=== PATIENT | male | born 1960 | race Caucasian/White ===

== ENCOUNTER 2017-02-22 15:25 | Inpatient (IN) ==
[2017-02-22 17:10] LABS: INR 1.9; Prothrombin Time 20.4 Seconds (9.4-12.1)
[2017-02-22 17:20] LABS: Calcium 9.3 mg/dL (8.6-10.8); Potassium 4.6 mEq/L (3.5-4.5)
[2017-02-22 17:32] LABS: Basophils % 0.4 %; Eosinophils # 0.1 K/mcL (0.0-0.6); Eosinophils % 0.4 %; Hematocrit 41.1 % (37.5-50.1); Hemoglobin 13.5 g/dL (12.9-16.9); Immature Granulocytes % 0.4 % (0-4); Lymphocytes # 1.3 K/mcL (0.6-4.6); Lymphocytes % 11.3 %; Mean Corpuscular HGB Conc 32.8 g/dL (31.6-35.5); Mean Corpuscular Hemoglobin 27.8 pg (28.0-33.3); Mean Corpuscular Volume 84.6 fL (83.0-100.0); Mean Platelet Volume 11.8 fL (9.4-12.4); Monocytes # 1.5 K/mcL (0.0-1.3); Monocytes % 13.3 %; Neutrophils # 8.4 K/mcL (1.6-8.9); Platelet Count 154 K/mcL (140-400); Red Blood Count 4.86 M/mcL (4.19-5.50); Red Cell Distribution Width 19.1 % (11.5-14.5); Segmented Neutrophils % 74.2 %
--- NOTE | 2017-02-22 17:48 | Podiatry History & Physical ---
History of Present Illness Chief complaint: Draining foot ulcer with cellulitis right HPI: Mr. Richter is a 56 year old male who presented to wound care clinic today with regression of his ulcer with active drainage and cellulitis of his right foot. Patient complaining of fatigue malaise chills and low-grade fever over the last 12 hours. He has a long history of Charcot arthropathy and a plantar ulceration secondary to his foot deformity. We have been treating him with moderate success with soft casting and local wound care but unfortunately we now see a tunnel and undermining with this wound with serous and serosanguineous drainage. We do see periwound erythema and localized cellulitis , with his symptoms and his history of diabetes and multiple comorbidities and failed outpatient therapy he is admitted for intravenous antibiotics and evaluation. All Systems Reviewed: A 10-system review of systems was performed and is negative for pertinent findings except as documented above in the HPI. Past Med Surg Social Fam HX - Past Medical History Source: patient Medical history: coronary artery disease, diabetes, hyperlipidemia, hypertension , renal disease, thyroid disease Psychiatric history: anxiety, depression - Past Surgical History Surgical History: coronary bypass (CABG) - Social History Smoking Status: Never smoker Smokeless Tobacco Status: No Alcohol use: none Drug use: none - Family History Mother Adopted: No Family Member Ethnicity: Non- Living Status: Still Living Hx Family Cardiac Disorders: Yes Hx Family Respiratory Disorders: Yes Hx Family Cancer: No Hx Family GI Disorders: No Hx Family Endocrine Disorder: No Hx Family Neuromuscular Disorders: No Hx Family Neurologic Disorders: No Hx Family HEENT Disorders: No Hx Family Autoimmune Disorders: No Paternal Family Member Ethnicity: Non- Living Status: Hx Family Cardiac Disorders: Yes Hx Family Respiratory Disorders: Yes Hx Family Cancer: No Hx Family GI Disorders: No Hx Family Endocrine Disorder: Yes Hx Family Neuromuscular Disorders: No Hx Family Neurologic Disorders: No Hx Family HEENT Disorders: No Hx Family Autoimmune Disorders: No Medications and Allergies Allopurinol [Zyloprim] 100 mg PO DAILY 07/29/15 [History] Colchicine [Colcrys] 0.6 mg PO DAILY 07/29/15 [History] Gemfibrozil [Lopid] 600 mg PO BID 07/29/15 [History] Insulin ASPART [NovoLOG] 22 - 52 units SQ TIDWM 07/29/15 [History] Insulin Glargine [Lantus] 60 unit SQ BID 07/29/15 [History] Levothyroxine [Synthroid] 150 mcg PO QAM 07/29/15 [History] Liraglutide [Victoza 2-Robin] 1.2 mg SQ DAILY 12/02/15 [History] Aspirin 81 mg PO DAILY 09/05/16 [History] Multivitamin [Multi-Day Vitamins] 1 each PO DAILY 09/05/16 [History] Zolpidem [Ambien] 10 mg PO HS PRN 09/05/16 [History] HYDROcodone/Acet 7.5/325 mg [[place] 7.5-325 mg] 1 tab PO BID PRN #14 tablet 09/12 [Rx] Furosemide [Lasix] 40 mg PO DAILY 12/07/16 [History] Metoprolol XL (24 HR) Succ [Toprol Xl] 50 mg PO DAILY 01/02/17 [History] Losartan [Cozaar] 25 mg PO DAILY 02/22/17 [History] [place]-3/Dha/Epa/Fish Oil [Fish Oil 1,000 mg Softgel] 2,000 mg PO BID 02/22/17 [ History] Rivaroxaban [Xarelto] 15 mg PO DAILY 02/22/17 [History] clonazePAM [Klonopin] 0.5 mg PO HS PRN 02/22/17 [History] dilTIAZem HCl [Cardizem] 60 mg PO TID 02/22/17 [History] hydrALAZINE [HydrALAZINE] 25 mg PO Q8H PRN 02/22/17 [History] hydroCHLOROthiazide [Hydrochlorothiazide] 25 mg PO DAILY 02/22/17 [History] Allergies No Known Allergies Allergy (Verified 09/05/16 18:47) Physical Exam - Constitutional Vitals: Temp Pulse Resp BP Pulse Ox 99.4 F 70 16 124/69 94 02/22/17 16:01 02/22/17 16:01 02/22/17 16:01 02/22/17 16:01 02/22/17 16:01 General appearance: obese - Extremities Exam Extremities exam: Present: normal capillary refill - Expanded Lower Extremities Exam Foot/Toe exam: Present: erythema (Charcot arthropathy Eichholz class III right midfoot) - Neurological Exam Neurological exam: Present: abnormal gait Additional comments: Patient with loss of protective sensation, 2. discrimination light touch vibration epicritic sensation the toes to tibia bilaterally. - Psychiatric Psychiatric exam: Present: normal affect - Skin Additional comments: Cabezas grade 2 ulceration plantar aspect of right midfoot with central undermining and tunneling approximately 2-3 cm in each direction. - Vascular Capillary Refill: less than 3 seconds Lower Extremity Vascular: decreased fine/light touch (Skin is warm to touch pedal pulses are diminished but palpable DP and PT bilaterally) - Ankle & Foot Foot appearance: swelling, erythema Results - Labs Result Diagrams: 02/22/17 16:46 02/22/17 16:46 Labs: Abnormal lab results WBC 11.3 K/mcL (4.3-11.1) H 02/22/17 16:46 MCH 27.8 pg (28.0-33.3) L 02/22/17 16:46 RDW 19.1 % (11.5-14.5) H 02/22/17 16:46 Monocytes # 1.5 K/mcL (0.0-1.3) H 02/22/17 16:46 ESR 97 mm/hr (0-10) H 02/22/17 16:46 PT 20.4 Seconds (9.4-12.1) H 02/22/17 16:46 Potassium 4.6 mEq/L (3.5-4.5) H 02/22/17 16:46 BUN 60 mg/dL (8-26) H 02/22/17 16:46 Creatinine 2.94 mg/dL (0.72-1.25) H 02/22/17 16:46 Est GFR ( Amer) 27 (> 60) L 02/22/17 16:46 Est GFR (Non-Af Amer) 22 (> 60) L 02/22/17 16:46 Glucose 234 mg/dL (70-99) H 02/22/17 16:46 POC Glucose 225 (58-89) H 02/22/17 16:48 Calculated Osmolality 306 (280-300) H 02/22/17 16:46 C-Reactive Protein 166 mg/L (Less than 5) H 02/22/17 16:46 H & H 02/22/17 Range/Units 16:46 Hgb 13.5 (12.9-16.9) g/dL Hct 41.1 (37.5-50.1) % All other labs normal. - Diagnostic results Ankle/Foot x-ray: pending Ankle/Foot MRI: pending Assessment and Plan (1) Diabetic foot ulcer Current visit: No Status: Acute Assessment: #1 diabetic foot ulcer with localized cellulitis undermining and tunneling. #2 concern for sepsis because of leukocytosis and low-grade fever #3 multiple comorbidities as outlined in history including diabetes with nephropathy neuropathy angiopathy. #4 morbid obesity Plan: #1 admit for intravenous antibiotics cultures taken and will care clinic prior to antibiotic therapy being instituted. History of MSSA of the right foot wound. #2 request medicine consult for management of his comorbidities #3 radiographic evaluation/imaging with history of Charcot neuroarthropathy Qualifiers: Diabetic foot ulcer location: midfoot Diabetes mellitus type: due to underlying condition Laterality: right Non-pressure ulcer stage: limited to breakdown of skin Qualified Code(s): E08.621 - Diabetes mellitus due to underlying condition with foot ulcer; L97.411 - Non-pressure chronic ulcer of right heel and midfoot limited to breakdown of skin (2) Cellulitis of right foot Current visit: No Status: Acute
[2017-02-22] MEDS ORDERED: *HR* HYDROcodone/Acet 7.5/325 mg TABLET PO PRN (20:36)
[2017-02-22] MEDS ORDERED: hydrALAZINE 25 MG TABLET PO PRN (20:36)
[2017-02-22] MEDS ORDERED: clonazePAM 0.5 MG TABLET PO PRN (20:36)
[2017-02-22] MEDS ORDERED: D5% in Water 1,000 ML IVC PRN (20:41)
[2017-02-22] MEDS ORDERED: Dextrose Gel 15 GM PO PRN ×2 (20:41)
[2017-02-22] MEDS ORDERED: *HR* Dextrose 50 % in Water (Syg) 50 ML SYRINGE IVP PRN (20:41)
--- NOTE | 2017-02-22 20:46 | Internal Medicine Consult Note ---
Date of Encounter: 02/22/17 Time of Encounter: 20:43 - Assessment and Plan (1) Diabetic foot ulcer Current Visit: No Status: Acute Assessment and plan: Treated by the primary team, right foot ulcer Currently on Zosyn, May de-escalate antibiotics and use Unasyn as in the prior cultures the patient has been growing MSSA The patient has also history of C. difficile colitis, watch for recurrence Qualifiers: Diabetic foot ulcer location: midfoot Diabetes mellitus type: due to underlying condition Laterality: right Non-pressure ulcer stage: limited to breakdown of skin Qualified Code(s): E08.621 - Diabetes mellitus due to underlying condition with foot ulcer; L97.411 - Non-pressure chronic ulcer of right heel and midfoot limited to breakdown of skin (2) Diabetes Current Visit: Yes Status: Acute Assessment and plan: The patient uses Lantus 60 units twice a day and any sudden sliding scale If there is any surgical procedure programmed his dose of insulin should be cut in half the night prior to the procedure Qualifiers: Diabetes mellitus type: type 2 Diabetes mellitus complication status: with kidney complications Diabetes mellitus complication detail: with chronic kidney disease Diabetes mellitus snf insulin use: with joint terminal attack controller use Chronic kidney disease stage: stage 4 (severe) Qualified Code(s): E11.22 - Type 2 diabetes mellitus with diabetic chronic kidney disease; N18.4 - Chronic kidney disease, stage 4 (severe); Z79.4 - intermediate manager (current) use of insulin (3) Acute renal insufficiency Current Visit: No Status: Acute Assessment and plan: Chronic kidney disease stage IV, stable (4) Atrial fibrillation Current Visit: No Status: Acute Assessment and plan: Paroxysmal atrial fibrillation Continue diltiazem, metoprolol and Xarelto Qualifiers: Atrial fibrillation type: paroxysmal Qualified Code(s): I48.0 - Paroxysmal atrial fibrillation (5) Charcot's arthropathy associated with type 2 diabetes mellitus Current Visit: No Status: Chronic (6) Essential hypertension Current Visit: No Status: Chronic Assessment and plan: Thank you for allowing us to participate in the care of this patient please call with any question Internal Medicine - CN: HPI - Data of Consult Patient: known to practice within the last 3 years Consult date: 02/22/17 Requesting Physician: Juan Davies, - Consult Narrative Reason for consult: Diabetes and chronic kidney disease History of present illness: Mr. Richter is a 56 year old male with a past medical history of chronic kidney disease stage IV, diabetes type 2 insulin-dependent, C. difficile colitis, atrial fibrillation on Xarelto who was admitted by Dr. Davies's office at the wound care clinic as he has been treating him from a right foot ulcer that has been getting worse. Has had increased drainage, not quantified fevers, chills and fatigue. White blood cell count is 11.3 creatinine 2.94 close to baseline, CRP is 166 x-ray shows Charcot's arthropathy, cellulitis versus also ulceration with no evidence of osteomyelitis. The patient was started on Zosyn. We were consulted to manage his diabetes and his chronic kidney disease. Denies any other complaints Past Med Surg Social Fam HX - Past Medical History Medical history: atrial fibrillation (on Xarelto), coronary artery disease, diabetes (Insulin-dependent), hyperlipidemia, hypertension, renal disease, thyroid disease, other (Chronic kidney disease stage IV, hypothyroidism, depression, gout, systolic dysfunction with an ejection fraction of 50%, COPD not oxygen dependent, history of C. difficile colitis, MSSA in the right foot) Psychiatric history: anxiety, depression - Past Surgical History Surgical History: coronary bypass (CABG) - Social History Smoking Status: Never smoker Smokeless Tobacco Status: No Alcohol use: none Drug use: none - Family History Mother Adopted: No Family Member Ethnicity: Non- Living Status: Still Living Hx Family Cardiac Disorders: Yes Hx Family Respiratory Disorders: Yes Hx Family Cancer: No Hx Family GI Disorders: No Hx Family Endocrine Disorder: No Hx Family Neuromuscular Disorders: No Hx Family Neurologic Disorders: No Hx Family HEENT Disorders: No Hx Family Autoimmune Disorders: No Paternal Family Member Ethnicity: Non- Living Status: Hx Family Cardiac Disorders: Yes Hx Family Respiratory Disorders: Yes Hx Family Cancer: No Hx Family GI Disorders: No Hx Family Endocrine Disorder: Yes Hx Family Neuromuscular Disorders: No Hx Family Neurologic Disorders: No Hx Family HEENT Disorders: No Hx Family Autoimmune Disorders: No - Additional Family History Additional family history: Father with diabetes Review of systems: Mild pain in his foot. Other systems out of the ten reviewed were negative Internal Medicine - CN: Meds Allopurinol [Zyloprim] 100 mg PO DAILY 07/29/15 [History] Colchicine [Colcrys] 0.6 mg PO DAILY 07/29/15 [History] Gemfibrozil [Lopid] 600 mg PO BID 07/29/15 [History] Insulin ASPART [NovoLOG] 22 - 52 units SQ TIDWM 07/29/15 [History] Insulin Glargine [Lantus] 60 unit SQ BID 07/29/15 [History] Levothyroxine [Synthroid] 150 mcg PO QAM 07/29/15 [History] Liraglutide [Victoza 2-Robin] 1.2 mg SQ DAILY 12/02/15 [History] Aspirin 81 mg PO DAILY 09/05/16 [History] Multivitamin [Multi-Day Vitamins] 1 each PO DAILY 09/05/16 [History] Zolpidem [Ambien] 10 mg PO HS PRN 09/05/16 [History] HYDROcodone/Acet 7.5/325 mg [[place] 7.5-325 mg] 1 tab PO BID PRN #14 tablet 09/12 [Rx] Furosemide [Lasix] 40 mg PO DAILY 12/07/16 [History] Metoprolol XL (24 HR) Succ [Toprol Xl] 50 mg PO DAILY 01/02/17 [History] Losartan [Cozaar] 25 mg PO DAILY 02/22/17 [History] [place]-3/Dha/Epa/Fish Oil [Fish Oil 1,000 mg Softgel] 2,000 mg PO BID 02/22/17 [ History] Rivaroxaban [Xarelto] 15 mg PO DAILY 02/22/17 [History] clonazePAM [Klonopin] 0.5 mg PO HS PRN 02/22/17 [History] dilTIAZem HCl [Cardizem] 60 mg PO TID 02/22/17 [History] hydrALAZINE [HydrALAZINE] 25 mg PO Q8H PRN 02/22/17 [History] hydroCHLOROthiazide [Hydrochlorothiazide] 25 mg PO DAILY 02/22/17 [History] Allergies No Known Allergies Allergy (Verified 09/05/16 18:47) Internal Medicine - CN: Exam - Constitutional Vitals: Temp Pulse Resp BP Pulse Ox 98.8 F 89 17 112/71 94 02/22/17 19:02 02/22/17 19:02 02/22/17 19:02 02/22/17 19:02 02/22/17 19:02 General appearance IM: Present: A&O X 3 - Head Head exam: Present: atraumatic, normal inspection - Expanded Head Exam Head exam expanded IM: Absent: Olvera's sign, contusion - Eye Eye exam: Present: EOMI, normal appearance. Absent: conjunctival injection - ENT ENT exam: Present: mucous membranes moist - Neck Neck exam general surgery: Present: full ROM, normal inspection. Absent: lymphadenopathy - Respiratory Respiratory exam: Present: decreased breath sounds. Absent: accessory muscle use, chest wall tenderness, rales, respiratory distress, wheezes - Cardiovascular Cardiovascular exam IM: Present: +S1, +S2. Absent: diastolic murmur, systolic murmur - GI/Abdominal GI/Abdominal exam IM: Present: distended (Obese), soft. Absent: tenderness - Extremities Exam Additional comments: Cabezas grade 2 ulceration plantar aspect of right midfoot with central undermining and tunneling approximately 2-3 cm in each direction. - Neurological Exam Neurological exam: Present: alert, CN II-XII intact, normal gait, oriented X3 Internal Medicine - CN: Reslt - Labs CBC & Chem 7: 02/22/17 16:46 02/22/17 16:46 Labs: Short CBC 02/22/17 Range/Units 16:46 WBC 11.3 H (4.3-11.1) K/mcL Hgb 13.5 (12.9-16.9) g/dL Hct 41.1 (37.5-50.1) % Plt Count 154 (140-400) K/mcL Neutrophils # 8.4 (1.6-8.9) K/mcL BMP 02/22/17 16:46 Sodium 136 Potassium 4.6 H Chloride 102 Carbon Dioxide 24 BUN 60 H Creatinine 2.94 H Glucose 234 H Calcium 9.3 - ABG Interpretation ABG results: PT/INR, D-dimer PT 20.4 Seconds (9.4-12.1) H 02/22/17 16:46 - Impressions Impressions Foot X-Ray 02/22/17 16:24 IMPRESSION: Grossly stable advanced Charcot arthropathy involving the midfoot. New focal soft tissue swelling with soft tissue gas along the plantar aspect of the midfoot consistent with cellulitis and ulceration. No obvious plain film evidence of osteomyelitis. D/ / 02/22/2017 17:54:34 Viktor Gary MD / curt Interpreting Provider: Viktor Gary MD Consult Discharge Plan - Plan Referrals: Amarilis Cabrera, [facility] [Primary Care Provider] -
[2017-02-22] MEDS: dilTIAZem HCl 60 MG TABLET PO SCH (22:20)
[2017-02-22] MEDS: Insulin LISPRO 300 UNITS/3 ML VIAL SQ SCH (22:21)
[2017-02-22] MEDS: Insulin DETEMIR 100 UNIT/ML X5UNITS SQ SCH (22:28)
[2017-02-23] MEDS: Insulin LISPRO 300 UNITS/3 ML VIAL SQ SCH ×7 (07:24→20:40)
[2017-02-23] MEDS: *HR* Rivaroxaban 15 MG TABLET PO SCH (08:59)
[2017-02-23] MEDS: Furosemide 40 MG TABLET PO SCH (08:59)
[2017-02-23] MEDS: dilTIAZem HCl 60 MG TABLET PO SCH ×3 (08:59→20:40)
[2017-02-23] MEDS: Metoprolol XL (24 HR) Succ 50 MG TAB.ER.24H PO SCH (09:00)
[2017-02-23] MEDS: hydroCHLOROthiazide 25 MG TABLET PO SCH (09:00)
[2017-02-23] MEDS: Aspirin 81 MG TAB.CHEW PO SCH (09:00)
[2017-02-23] MEDS: Insulin DETEMIR 100 UNIT/ML X5UNITS SQ SCH ×2 (09:00→20:41)
[2017-02-23] MEDS: Colchicine 0.6 MG TABLET PO SCH (09:00)
--- NOTE | 2017-02-23 10:43 | Internal Med Progress Note ---
<Abundio Akhtar - Last Filed: 02/23/17 14:24> Date of Encounter: 02/23/17 Time of Encounter: 09:25 - Assessment and plan (1) Diabetic foot ulcer Current Visit: No Status: Acute Assessment and plan: Treatment of right diabetic foot ulcer per primary team Currently on Zosyn and awaiting final culture and sensitivities to direct de- escalation of antibiotics. Preliminary culture shows gram-negative celso and MRI of his foot does not appear to show significant osteomyelitis. Qualifiers: Diabetic foot ulcer location: midfoot Diabetes mellitus type: due to underlying condition Laterality: right Non-pressure ulcer stage: limited to breakdown of skin Qualified Code(s): E08.621 - Diabetes mellitus due to underlying condition with foot ulcer; L97.411 - Non-pressure chronic ulcer of right heel and midfoot limited to breakdown of skin (2) Diabetes Current Visit: Yes Status: Acute Assessment and plan: Patient on 60 units Lantus twice a day with sliding scale for home control. Blood sugars have been controlled in hospital so far. We will continue basal insulin with 60 units Levemir twice a day and high-dose sliding scale If surgical procedure planned, will reduce dose of insulin by half the night prior Qualifiers: Diabetes mellitus type: type 2 Diabetes mellitus complication status: with kidney complications Diabetes mellitus complication detail: with chronic kidney disease Diabetes mellitus terminal superintendent insulin use: with terminal superintendent use Chronic kidney disease stage: stage 4 (severe) Qualified Code(s): E11.22 - Type 2 diabetes mellitus with diabetic chronic kidney disease; N18.4 - Chronic kidney disease, stage 4 (severe); Z79.4 - long-term (current) use of insulin (3) Atrial fibrillation Current Visit: No Status: Acute Assessment and plan: Patient previously diagnosed with paroxysmal atrial fibrillation. His home medications include diltiazem, metoprolol, and Xarelto. Patient slightly tachycardic likely account of his current infection. Blood pressure is controlled currently. Continue home medications Qualifiers: Atrial fibrillation type: paroxysmal Qualified Code(s): I48.0 - Paroxysmal atrial fibrillation (4) Charcot's arthropathy associated with type 2 diabetes mellitus Current Visit: No Status: Chronic (5) Chronic renal disease Current Visit: No Status: Acute Assessment and plan: Patient chronic kidney disease varies between stage III and IV with average GFR oscillating around 30. Currently stable. Avoid nephrotoxic agents Dose medications renally Qualifiers: Chronic kidney disease stage: stage 4 (severe) Qualified Code(s): N18.4 - Chronic kidney disease, stage 4 (severe) (6) Essential hypertension Current Visit: No Status: Chronic Assessment and plan: Patient on several medications to help his chronically high blood pressure: Metoprolol succinate 50 mg daily Losartan 25 mg daily Hydrochlorothiazide 25 mg daily Diltiazem 60 mg by mouth 3 times a day Patient also has some when necessary medications for elevated blood pressure including: Hydralazine 25 mg by mouth every 8 hours when necessary Continue medications (7) DVT prophylaxis Current Visit: Yes Status: Acute Assessment and plan: Continue patient Xarelto - Subjective Interval history: Patient reports that when he initially was admitted to the hospital he is having episodes of shakiness and fevers, but reports that he has not had any of these episodes since last night. He also states that he was having pain in his foot that he no longer seems to have. He denies any nausea or vomiting, denies any abdominal pain, denies any fever or chills at this point. - Constitutional Vitals: Temp Pulse Resp BP Pulse Ox 98.6 F 113 16 112/67 96 02/23/17 07:17 02/23/17 07:17 02/23/17 07:17 02/23/17 07:17 02/23/17 07:17 General appearance: Present: A&O X 3 Exam: General: Cooperative, pleasant, no acute distress, alert and oriented 3, answers questions appropriately HEENT: Normocephalic, atraumatic, Conjunctiva pink, sclera anicteric, EOMI, oral mucosa moist, no orophargeal erythema or exudates Respiratory: No accessory muscle usage, clear to auscultation bilaterally, no wheezes/rhonchi/rales appreciated Cardiovascular: Regular rhythm, S1 and S2 present, no murmurs/rubs/gallops/ clicks appreciated GI/abdominal: Nondistended, nontender, soft, normal bowel sounds, no peritoneal signs Extremities: No calf tenderness, noncyanotic, 2+ pedal edema in right foot, minimal nonpitting edema in bilateral lower extremities, dressing in place over right foot with discolored dressing over heel of foot, warm, lower extremity pulses palpable and symmetrical Neurological: Alert and oriented 3, no facial droop, no focal deficits Skin: Dry, intact, normal color Internal Medicine: Result - Labs CBC & Chem 7: 02/22/17 16:46 02/22/17 16:46 Labs: Short CBC 02/22/17 Range/Units 16:46 WBC 11.3 H (4.3-11.1) K/mcL Hgb 13.5 (12.9-16.9) g/dL Hct 41.1 (37.5-50.1) % Plt Count 154 (140-400) K/mcL Neutrophils # 8.4 (1.6-8.9) K/mcL BMP 02/22/17 16:46 Sodium 136 Potassium 4.6 H Chloride 102 Carbon Dioxide 24 BUN 60 H Creatinine 2.94 H Glucose 234 H Calcium 9.3 - ABG Interpretation ABG results: PT/INR, D-dimer PT 20.4 Seconds (9.4-12.1) H 02/22/17 16:46 - Impressions Impressions Foot X-Ray 02/22/17 16:24 IMPRESSION: Grossly stable advanced Charcot arthropathy involving the midfoot. New focal soft tissue swelling with soft tissue gas along the plantar aspect of the midfoot consistent with cellulitis and ulceration. No obvious plain film evidence of osteomyelitis. D/ / 02/22/2017 17:54:34 Viktor Gary MD / [id number] Interpreting Provider: Viktor Gary MD Foot MRI 02/22/17 16:25 IMPRESSION: 1. Plantar lateral midfoot soft tissue ulceration with adjacent soft tissue edema versus phlegmon. Diffuse soft tissue edema compatible cellulitis. No drainable fluid collection. 2. Edema versus phlegmon contacting the plantar margin of the cuboid bone which is irregular in appearance with mild edema and a small area of decreased T1 signal that may represent early osteomyelitis. 3. Severe destructive disorganization and fragmentation of the midfoot most likely representing Charcot arthropathy. D/ / Hai Goel MD / Hai Goel MD Interpreting Provider: Hai Goel MD Consult Discharge Plan - Plan Referrals: Amarilis Cabrera, [facility] [Primary Care Provider] - <Hieu López - Last Filed: 02/23/17 16:26> Date of Encounter: 02/23/17 - Constitutional Vitals: Temp Pulse Resp BP Pulse Ox 98.1 F 117 18 111/80 96 02/23/17 15:58 02/23/17 15:58 02/23/17 15:58 02/23/17 15:58 02/23/17 15:58 Internal Medicine: Result - Labs CBC & Chem 7: 02/22/17 16:46 02/22/17 16:46 Labs: Short CBC 02/22/17 Range/Units 16:46 WBC 11.3 H (4.3-11.1) K/mcL Hgb 13.5 (12.9-16.9) g/dL Hct 41.1 (37.5-50.1) % Plt Count 154 (140-400) K/mcL Neutrophils # 8.4 (1.6-8.9) K/mcL BMP 02/22/17 16:46 Sodium 136 Potassium 4.6 H Chloride 102 Carbon Dioxide 24 BUN 60 H Creatinine 2.94 H Glucose 234 H Calcium 9.3 - ABG Interpretation ABG results: PT/INR, D-dimer PT 20.4 Seconds (9.4-12.1) H 02/22/17 16:46 - Impressions Impressions Foot X-Ray 02/22/17 16:24 IMPRESSION: Grossly stable advanced Charcot arthropathy involving the midfoot. New focal soft tissue swelling with soft tissue gas along the plantar aspect of the midfoot consistent with cellulitis and ulceration. No obvious plain film evidence of osteomyelitis. D/ / 02/22/2017 17:54:34 Viktor Gary MD / [facility] Interpreting Provider: Viktor Gary MD Foot MRI 02/22/17 16:25 IMPRESSION: 1. Plantar lateral midfoot soft tissue ulceration with adjacent soft tissue edema versus phlegmon. Diffuse soft tissue edema compatible cellulitis. No drainable fluid collection. 2. Edema versus phlegmon contacting the plantar margin of the cuboid bone which is irregular in appearance with mild edema and a small area of decreased T1 signal that may represent early osteomyelitis. 3. Severe destructive disorganization and fragmentation of the midfoot most likely representing Charcot arthropathy. D/ / Hai Goel MD / Hai Goel MD Interpreting Provider: Hai Goel MD - Attending Attestation I examined this patient and my medical decision-making was reviewed with the [employer] ATTENDANT/PA/Advanced Practice Nurse/Resident Physician. I agree with the documented findings, disposition and treatment plan as described except to the extent set forth below. INsulin therapy, bp control, dvt prophylaxis, management as per primary team.
--- NOTE | 2017-02-23 15:09 | Podiatry Progress Note ---
Date of Encounter: 02/23/17 Time of Encounter: 15:00 - Assessment and Plan (1) Diabetic foot ulcer Current Visit: No Status: Acute Dressing changed at bedside. Periwound erythema with swelling, no streaking, no pus, no odor. WBC: 11.3, afebrile. Wound cultures obtained in wound care: preliminary results gram negative celso. History of MSSA of right foot wound. Currently receiving IV Zosyn. MRI of right foot reviewed by Dr. Davies and negative for osteomyelitis or abscess. Plan will be to continue IV antibiotics in the hospital and discharge home with oral antibiotics based on final sensitivity report. Will continue to follow patient closely. Qualifiers: Diabetic foot ulcer location: midfoot Diabetes mellitus type: due to underlying condition Laterality: right Non-pressure ulcer stage: limited to breakdown of skin Qualified Code(s): E08.621 - Diabetes mellitus due to underlying condition with foot ulcer; L97.411 - Non-pressure chronic ulcer of right heel and midfoot limited to breakdown of skin (2) Charcot's arthropathy associated with type 2 diabetes mellitus Current Visit: No Status: Chronic (3) Cellulitis of right foot Current Visit: No Status: Acute Subjective Interval history: Patient is sitting up in bed with dressing intact to right foot. Moderate amount of serosanguineous drainage observed to dressing. Patient denies any fever or chills overnight. Patient states that the swelling and redness have gone down since being admitted. Patient had an MRI of the right foot yesterday. Wound cultures were obtained in wound care clinic and pending. Objective - Vital Signs Vital Signs: Vital Signs Temp Pulse Resp BP Pulse Ox 02/23/17 11:47 98.1 F 112 18 103/66 97 02/23/17 07:17 98.6 F 113 16 112/67 96 02/23/17 03:23 97.6 F 72 16 134/74 95 02/22/17 23:05 99.7 F H 107 17 160/96 97 02/22/17 19:02 98.8 F 89 17 112/71 94 02/22/17 16:01 99.4 F 70 16 124/69 94 02/22/17 15:58 98.7 F 74 16 127/68 95 Intake and Output 02/22/17 02/23/17 02/23/17 23:59 07:59 15:59 Intake Total 0 / 0 480 / 480 Balance 0 / 0 480 / 480 Intake: Oral 0 / 0 480 / 480 Other: Meal Lunch Percent of Meal Consumed 100% Weight 158.4 kg 158.3 kg Blood Glucose* 233 76 128 Patient Weight 02/23/17 23:59 Weight 158.3 kg - Exam Exam: General appearance: alert awake oriented X 3. Calm and pleasant, no acute distress.. Vascular: Right foot: Pedal pulses +1/4 DP/PT , Edema graded at 3+/4, Skin Temperature warm, No calf pain with manual compression. capillary refill time is immediate to digits. Neurologic: Sensation diminished with light touch to foot. . Ulcer: Full thickness ulceration to the plantar aspect of right midfoot measuring approximately 2.2 cm in length x 1.5 cm in width, with central undermining and tunneling approximately 2 to 3 cm in each direction with periwound erythema, no streaking, No purulent drainage, no odor. Moderate amount of serous serosanguineous drainage seen on dressing. - Lab Result Diagrams: 02/22/17 16:46 02/22/17 16:46 Labs: Abnormal lab results WBC 11.3 K/mcL (4.3-11.1) H 02/22/17 16:46 MCH 27.8 pg (28.0-33.3) L 02/22/17 16:46 RDW 19.1 % (11.5-14.5) H 02/22/17 16:46 Monocytes # 1.5 K/mcL (0.0-1.3) H 02/22/17 16:46 ESR 97 mm/hr (0-10) H 02/22/17 16:46 PT 20.4 Seconds (9.4-12.1) H 02/22/17 16:46 Potassium 4.6 mEq/L (3.5-4.5) H 02/22/17 16:46 BUN 60 mg/dL (8-26) H 02/22/17 16:46 Creatinine 2.94 mg/dL (0.72-1.25) H 02/22/17 16:46 Est GFR ( Amer) 27 (> 60) L 02/22/17 16:46 Est GFR (Non-Af Amer) 22 (> 60) L 02/22/17 16:46 Glucose 234 mg/dL (70-99) H 02/22/17 16:46 POC Glucose 233 (58-89) H 02/22/17 20:18 Calculated Osmolality 306 (280-300) H 02/22/17 16:46 C-Reactive Protein 166 mg/L (Less than 5) H 02/22/17 16:46 Consult Discharge Plan - Plan Referrals: Amarilis Cabrera, SCREEN PRINTING STENCIL PREPARER [Primary Care Provider] -
[2017-02-23] MEDS: Piperacillin/Tazobactam 3.375 GM in D5% in Water (Mini-Bag+) 100 ML IVPB SCH (16:55)
[2017-02-24] MEDS: Piperacillin/Tazobactam 3.375 GM in D5% in Water (Mini-Bag+) 100 ML IVPB SCH ×3 (01:02→16:01)
[2017-02-24 05:44] LABS: Basophils % 0.5 %; Eosinophils # 0.4 K/mcL (0.0-0.6); Eosinophils % 4.8 %; Hematocrit 38.9 % (37.5-50.1); Hemoglobin 12.7 g/dL (12.9-16.9); Immature Granulocytes % 0.4 % (0-4); Immature Platelets 5.9 % (1.1-6.1); Lymphocytes # 1.6 K/mcL (0.6-4.6); Lymphocytes % 19.6 %; Mean Corpuscular HGB Conc 32.6 g/dL (31.6-35.5); Mean Corpuscular Hemoglobin 27.1 pg (28.0-33.3); Mean Corpuscular Volume 83.1 fL (83.0-100.0); Mean Platelet Volume 10.1 fL (9.4-12.4); Monocytes # 0.9 K/mcL (0.0-1.3); Monocytes % 11.4 %; Neutrophils # 5.1 K/mcL (1.6-8.9); Platelet Count 178 K/mcL (140-400); Red Blood Count 4.68 M/mcL (4.19-5.50); Red Cell Distribution Width 18.3 % (11.5-14.5); Segmented Neutrophils % 63.3 %
[2017-02-24 06:00] LABS: Calcium 9.7 mg/dL (8.6-10.8); Potassium 4.1 mEq/L (3.5-4.5)
[2017-02-24] MEDS: Insulin LISPRO 300 UNITS/3 ML VIAL SQ SCH ×8 (08:06→22:45)
[2017-02-24] MEDS: Metoprolol XL (24 HR) Succ 50 MG TAB.ER.24H PO SCH (08:15)
[2017-02-24] MEDS: Furosemide 40 MG TABLET PO SCH (08:15)
[2017-02-24] MEDS: *HR* Rivaroxaban 15 MG TABLET PO SCH (08:15)
[2017-02-24] MEDS: Colchicine 0.6 MG TABLET PO SCH (08:15)
[2017-02-24] MEDS: hydroCHLOROthiazide 25 MG TABLET PO SCH (08:15)
[2017-02-24] MEDS: dilTIAZem HCl 60 MG TABLET PO SCH ×3 (08:15→22:44)
[2017-02-24] MEDS: Aspirin 81 MG TAB.CHEW PO SCH (08:15)
[2017-02-24] MEDS: Insulin DETEMIR 100 UNIT/ML X5UNITS SQ SCH ×2 (08:39→22:44)
--- NOTE | 2017-02-24 10:33 | Internal Med Progress Note ---
<Abundio Akhtar - Last Filed: 02/24/17 10:30> Date of Encounter: 02/24/17 Time of Encounter: 09:45 - Assessment and plan (1) Diabetic foot ulcer Current Visit: No Status: Acute Assessment and plan: Preliminary culture shows gram-negative celso and MRI of his foot does not appear to show significant osteomyelitis. Treatment of right diabetic foot ulcer per primary team. The plan is to continue empiric antibiotics until final culture is resulted in order to better guide antibiotic therapy as outpatient. Qualifiers: Diabetic foot ulcer location: midfoot Diabetes mellitus type: due to underlying condition Laterality: right Non-pressure ulcer stage: limited to breakdown of skin Qualified Code(s): E08.621 - Diabetes mellitus due to underlying condition with foot ulcer; L97.411 - Non-pressure chronic ulcer of right heel and midfoot limited to breakdown of skin (2) Diabetes Current Visit: Yes Status: Acute Assessment and plan: Patient on 60 units Lantus twice a day with sliding scale for home control. Blood sugars have been controlled in hospital so far. We will continue basal insulin with 60 units Levemir twice a day and high-dose sliding scale If surgical procedure planned, will reduce dose of insulin by half the night prior Qualifiers: Diabetes mellitus type: type 2 Diabetes mellitus complication status: with kidney complications Diabetes mellitus complication detail: with chronic kidney disease Diabetes mellitus petroleum terminal plant operator insulin use: with petroleum terminal plant operator use Chronic kidney disease stage: stage 4 (severe) Qualified Code(s): E11.22 - Type 2 diabetes mellitus with diabetic chronic kidney disease; N18.4 - Chronic kidney disease, stage 4 (severe); Z79.4 - USP (current) use of insulin (3) Atrial fibrillation Current Visit: No Status: Acute Assessment and plan: Patient previously diagnosed with paroxysmal atrial fibrillation. His home medications include diltiazem, metoprolol, and Xarelto. Patient slightly tachycardic likely account of his current infection. Blood pressure is controlled currently. Heart rate regular currently. Continue home medications Qualifiers: Atrial fibrillation type: paroxysmal Qualified Code(s): I48.0 - Paroxysmal atrial fibrillation (4) Charcot's arthropathy associated with type 2 diabetes mellitus Current Visit: No Status: Chronic (5) Chronic renal disease Current Visit: No Status: Acute Assessment and plan: Patient chronic kidney disease varies between stage III and IV with average GFR oscillating around 30. Currently stable. Avoid nephrotoxic agents Dose medications renally Qualifiers: Chronic kidney disease stage: stage 4 (severe) Qualified Code(s): N18.4 - Chronic kidney disease, stage 4 (severe) (6) Essential hypertension Current Visit: No Status: Chronic Assessment and plan: Patient on several medications to help his chronically high blood pressure: Metoprolol succinate 50 mg daily Losartan 25 mg daily Hydrochlorothiazide 25 mg daily Diltiazem 60 mg by mouth 3 times a day Patient also has some when necessary medications for elevated blood pressure including: Hydralazine 25 mg by mouth every 8 hours when necessary Continue medications (7) DVT prophylaxis Current Visit: Yes Status: Acute Assessment and plan: Continue patient Xarelto - Subjective Interval history: He reports that he is feeling better today. He states that he has not had any fevers since his initial night of admission. He does report that he had some diaphoresis last night, but because it was warm. He denies any nausea/vomiting, abdominal pain, chest pain, or shortness of breath. He feels that the warmth and swelling in his right lower extremity is improved from yesterday. - Constitutional Vitals: Temp Pulse Resp BP Pulse Ox 97.7 F 122 18 135/85 98 02/24/17 07:00 02/24/17 07:00 02/24/17 07:00 02/24/17 07:00 02/24/17 07:00 General appearance: Present: A&O X 3 Exam: General: Cooperative, pleasant, no acute distress, alert and oriented 3, answers questions appropriately HEENT: Normocephalic, atraumatic, Conjunctiva pink, sclera anicteric, EOMI, oral mucosa moist, no orophargeal erythema or exudates Respiratory: No accessory muscle usage, clear to auscultation bilaterally, no wheezes/rhonchi/rales appreciated Cardiovascular: Regular rhythm, S1 and S2 present, no murmurs/rubs/gallops/ clicks appreciated GI/abdominal: Nondistended, nontender, soft, normal bowel sounds, no peritoneal signs Extremities: No calf tenderness, noncyanotic, 1-2+ pedal edema in right foot, minimal nonpitting edema in bilateral lower extremities, dressing in place over right foot, small bandage over left great toe, warm, lower extremity pulses palpable and symmetrical Neurological: Alert and oriented 3, no facial droop, no focal deficits Skin: Dry, intact, normal color Internal Medicine: Result - Labs CBC & Chem 7: 02/24/17 05:36 02/24/17 05:36 Labs: Short CBC 02/24/17 Range/Units 05:36 WBC 8.1 (4.3-11.1) K/mcL Hgb 12.7 L (12.9-16.9) g/dL Hct 38.9 (37.5-50.1) % Plt Count 178 (140-400) K/mcL Neutrophils # 5.1 (1.6-8.9) K/mcL BMP 02/24/17 05:36 Sodium 139 Potassium 4.1 Chloride 104 Carbon Dioxide 25 BUN 65 H Creatinine 2.70 H Glucose 114 H Calcium 9.7 - ABG Interpretation ABG results: PT/INR, D-dimer PT 20.4 Seconds (9.4-12.1) H 02/22/17 16:46 - Impressions Impressions Foot X-Ray 02/22/17 16:24 IMPRESSION: Grossly stable advanced Charcot arthropathy involving the midfoot. New focal soft tissue swelling with soft tissue gas along the plantar aspect of the midfoot consistent with cellulitis and ulceration. No obvious plain film evidence of osteomyelitis. D/ / 02/22/2017 17:54:34 Viktor Gary MD / lgray Interpreting Provider: Viktor Gary MD Consult Discharge Plan - Plan Referrals: Amarilis Cabrera, ASSISTANT DRAFTER [Primary Care Provider] - <Hieu López - Last Filed: 02/24/17 15:51> Date of Encounter: 02/24/17 - Constitutional Vitals: Temp Pulse Resp BP Pulse Ox 98.5 F 113 18 110/63 97 02/24/17 15:45 02/24/17 15:45 02/24/17 15:45 02/24/17 15:45 02/24/17 15:45 Internal Medicine: Result - Labs CBC & Chem 7: 02/24/17 05:36 02/24/17 05:36 Labs: Short CBC 02/24/17 Range/Units 05:36 WBC 8.1 (4.3-11.1) K/mcL Hgb 12.7 L (12.9-16.9) g/dL Hct 38.9 (37.5-50.1) % Plt Count 178 (140-400) K/mcL Neutrophils # 5.1 (1.6-8.9) K/mcL BMP 02/24/17 05:36 Sodium 139 Potassium 4.1 Chloride 104 Carbon Dioxide 25 BUN 65 H Creatinine 2.70 H Glucose 114 H Calcium 9.7 - ABG Interpretation ABG results: PT/INR, D-dimer PT 20.4 Seconds (9.4-12.1) H 02/22/17 16:46 - Attending Attestation I examined this patient and my medical decision-making was reviewed with the BUSINESS PLANNING MANAGER/PA/Advanced Practice Nurse/Resident Physician. I agree with the documented findings, disposition and treatment plan as described except to the extent set forth below. Agree with DR. Akhtar. Continue insulin therapy and bp control. Follow cultures.
[2017-02-24] MEDS: Multivit/Ca/Min/Fe/FA 1 TAB TABLET PO SCH (16:01)
[2017-02-24] MEDS: Ascorbic Acid 500 MG TABLET PO SCH ×2 (16:01→22:44)
[2017-02-25] MEDS: Piperacillin/Tazobactam 3.375 GM in D5% in Water (Mini-Bag+) 100 ML IVPB SCH ×3 (01:04→17:22)
[2017-02-25 04:02] LABS: Basophils # 0.1 K/mcL (0.0-0.2); Basophils % 0.7 %; Eosinophils # 0.4 K/mcL (0.0-0.6); Eosinophils % 5.1 %; Hematocrit 37.1 % (37.5-50.1); Hemoglobin 12.4 g/dL (12.9-16.9); Immature Granulocytes % 0.3 % (0-4); Lymphocytes # 1.3 K/mcL (0.6-4.6); Lymphocytes % 18.1 %; Mean Corpuscular HGB Conc 33.4 g/dL (31.6-35.5); Mean Corpuscular Hemoglobin 27.9 pg (28.0-33.3); Mean Corpuscular Volume 83.4 fL (83.0-100.0); Mean Platelet Volume 11.6 fL (9.4-12.4); Monocytes # 0.9 K/mcL (0.0-1.3); Monocytes % 12.3 %; Neutrophils # 4.4 K/mcL (1.6-8.9); Platelet Count 205 K/mcL (140-400); Red Blood Count 4.45 M/mcL (4.19-5.50); Segmented Neutrophils % 63.5 %
[2017-02-25 04:14] LABS: Calcium 9.8 mg/dL (8.6-10.8); Potassium 4.5 mEq/L (3.5-4.5)
[2017-02-25] MEDS: dilTIAZem HCl 60 MG TABLET PO SCH ×3 (07:57→21:23)
[2017-02-25] MEDS: Metoprolol XL (24 HR) Succ 50 MG TAB.ER.24H PO SCH (07:57)
[2017-02-25] MEDS: Furosemide 40 MG TABLET PO SCH (07:57)
[2017-02-25] MEDS: hydroCHLOROthiazide 25 MG TABLET PO SCH (07:57)
[2017-02-25] MEDS: Colchicine 0.6 MG TABLET PO SCH (07:57)
[2017-02-25] MEDS: Aspirin 81 MG TAB.CHEW PO SCH (07:57)
[2017-02-25] MEDS: Multivit/Ca/Min/Fe/FA 1 TAB TABLET PO SCH (07:57)
[2017-02-25] MEDS: *HR* Rivaroxaban 15 MG TABLET PO SCH (07:57)
[2017-02-25] MEDS: Ascorbic Acid 500 MG TABLET PO SCH ×2 (07:58→22:35)
[2017-02-25] MEDS: Insulin LISPRO 300 UNITS/3 ML VIAL SQ SCH ×7 (07:58→21:24)
[2017-02-25] MEDS: Insulin DETEMIR 100 UNIT/ML X5UNITS SQ SCH ×2 (08:07→21:23)
--- NOTE | 2017-02-25 14:14 | Internal Med Progress Note ---
Date of Encounter: 02/25/17 Time of Encounter: 08:00 - Assessment and plan (1) Diabetic foot ulcer Current Visit: No Status: Acute Assessment and plan: Culture shows proteus, pansensitive, podiatry managing. Treatment of right diabetic foot ulcer per primary team. Qualifiers: Diabetic foot ulcer location: midfoot Diabetes mellitus type: due to underlying condition Laterality: right Non-pressure ulcer stage: limited to breakdown of skin Qualified Code(s): E08.621 - Diabetes mellitus due to underlying condition with foot ulcer; L97.411 - Non-pressure chronic ulcer of right heel and midfoot limited to breakdown of skin (2) Diabetes Current Visit: Yes Status: Acute Assessment and plan: Patient on 60 units Lantus twice a day with sliding scale for home control. Blood sugars have been controlled in hospital so far. We will continue basal insulin with 60 units Levemir twice a day and high-dose sliding scale If surgical procedure planned, will reduce dose of insulin by half the night prior Qualifiers: Diabetes mellitus type: type 2 Diabetes mellitus complication status: with kidney complications Diabetes mellitus complication detail: with chronic kidney disease Diabetes mellitus long-term insulin use: with long-term use Chronic kidney disease stage: stage 4 (severe) Qualified Code(s): E11.22 - Type 2 diabetes mellitus with diabetic chronic kidney disease; N18.4 - Chronic kidney disease, stage 4 (severe); Z79.4 - intermediate teacher (current) use of insulin (3) Atrial fibrillation Current Visit: No Status: Acute Assessment and plan: Patient previously diagnosed with paroxysmal atrial fibrillation. His home medications include diltiazem, metoprolol, and Xarelto. Patient slightly tachycardic likely account of his current infection. Blood pressure is controlled currently. Heart rate regular currently. Continue home medications Qualifiers: Atrial fibrillation type: paroxysmal Qualified Code(s): I48.0 - Paroxysmal atrial fibrillation (4) Essential hypertension Current Visit: No Status: Chronic Assessment and plan: Patient on several medications to help his chronically high blood pressure: Metoprolol succinate 50 mg daily Losartan 25 mg daily Hydrochlorothiazide 25 mg daily Diltiazem 60 mg by mouth 3 times a day Patient also has some when necessary medications for elevated blood pressure including: Hydralazine 25 mg by mouth every 8 hours when necessary Continue medications (5) DVT prophylaxis Current Visit: Yes Status: Acute Assessment and plan: Continue patient Xarelto - Subjective Interval history: The patient was seen and examined during rounds. Denies chest pain, is afebrile. Intermittent tachycardia. - Constitutional Vitals: Temp Pulse Resp BP Pulse Ox 97.5 F L 98 18 143/81 98 02/25/17 11:23 02/25/17 11:23 02/25/17 11:23 02/25/17 11:23 02/25/17 11:23 General appearance: Present: cooperative, A&O X 3, morbidly obese, pleasant - Head Head exam: Present: atraumatic, normocephalic - Eye Eye exam: Present: PERRL, conjuntiva pink, sclera anicteric Pupils: Present: PERRL - Neck Neck exam general surgery: Present: supple, trachea midline. Absent: lymphadenopathy - Respiratory Respiratory exam: Present: CTAB. Absent: accessory muscle use, rales, rhonchi, wheezes - Cardiovascular Cardiovascular exam: Present: RRR, +S1, +S2. Absent: diastolic murmur, gallop, rubs, systolic murmur - GI/Abdominal GI/Abdominal exam: Present: normal bowel sounds, soft, no peritoneal signs. Absent: distended, tenderness - Extremities Exam Extremities exam: Present: warm, radial pulses palpable and symetrical. Absent : calf tenderness, cyanotic, pedal edema - Neurological Exam Neurological exam: Present: CN II-XII intact, oriented X3, no focal deficits. Absent: pronater drift, facial droop, speech deficit - Skin Skin exam: Present: dry, intact Internal Medicine: Result - Labs CBC & Chem 7: 02/25/17 03:28 02/25/17 03:28 Labs: Short CBC 02/25/17 Range/Units 03:28 WBC 6.9 (4.3-11.1) K/mcL Hgb 12.4 L (12.9-16.9) g/dL Hct 37.1 L (37.5-50.1) % Plt Count 205 (140-400) K/mcL Neutrophils # 4.4 (1.6-8.9) K/mcL BMP 02/25/17 03:28 Sodium 140 Potassium 4.5 Chloride 103 Carbon Dioxide 26 BUN 68 H Creatinine 2.74 H Glucose 176 H Calcium 9.8 - ABG Interpretation ABG results: PT/INR, D-dimer PT 20.4 Seconds (9.4-12.1) H 02/22/17 16:46 Consult Discharge Plan - Plan Referrals: Amarilis Cabrera, CAITY [Primary Care Provider] -
[2017-02-26] MEDS: Piperacillin/Tazobactam 3.375 GM in D5% in Water (Mini-Bag+) 100 ML IVPB SCH ×2 (00:40→08:02)
[2017-02-26] MEDS: Multivit/Ca/Min/Fe/FA 1 TAB TABLET PO SCH (07:58)
[2017-02-26] MEDS: Ascorbic Acid 500 MG TABLET PO SCH (07:59)
[2017-02-26] MEDS: Aspirin 81 MG TAB.CHEW PO SCH (07:59)
[2017-02-26] MEDS: Colchicine 0.6 MG TABLET PO SCH (07:59)
[2017-02-26] MEDS: hydroCHLOROthiazide 25 MG TABLET PO SCH (07:59)
[2017-02-26] MEDS: Furosemide 40 MG TABLET PO SCH (07:59)
[2017-02-26] MEDS: dilTIAZem HCl 60 MG TABLET PO SCH (07:59)
[2017-02-26] MEDS: Metoprolol XL (24 HR) Succ 50 MG TAB.ER.24H PO SCH (07:59)
[2017-02-26] MEDS: *HR* Rivaroxaban 15 MG TABLET PO SCH (07:59)
[2017-02-26] MEDS: Insulin LISPRO 300 UNITS/3 ML VIAL SQ SCH ×4 (08:13→12:13)
[2017-02-26] MEDS ORDERED: 0.9 % Sodium Chloride 250 ML IVC SCH (08:15)
--- NOTE | 2017-02-26 08:18 | Discharge Summary ---
Date of Encounter: 02/26/17 Time of Encounter: 08:14 - Discharge Diagnosis (1) Diabetic foot ulcer Priority: Primary Status: Acute Qualifiers: Diabetic foot ulcer location: midfoot Diabetes mellitus type: due to underlying condition Laterality: right Non-pressure ulcer stage: limited to breakdown of skin Qualified Code(s): E08.621 - Diabetes mellitus due to underlying condition with foot ulcer; L97.411 - Non-pressure chronic ulcer of right heel and midfoot limited to breakdown of skin (2) Cellulitis of right foot Priority: Secondary Status: Acute - Discharge Medications Prescriptions: Amoxicillin/Clavulanate [Augmentin] 875 mg PO BIDWM #28 tablet Levofloxacin [Levaquin] 500 mg PO DAILY #10 tablet Home Medications: Allopurinol [Zyloprim] 100 mg PO DAILY 07/29/15 [History] Colchicine [Colcrys] 0.6 mg PO DAILY 07/29/15 [History] Gemfibrozil [Lopid] 600 mg PO BID 07/29/15 [History] Insulin ASPART [NovoLOG] 22 - 52 units SQ TIDWM 07/29/15 [History] Insulin Glargine [Lantus] 60 unit SQ BID 07/29/15 [History] Levothyroxine [Synthroid] 150 mcg PO QAM 07/29/15 [History] Liraglutide [Victoza 2-Robin] 1.2 mg SQ DAILY 12/02/15 [History] Aspirin 81 mg PO DAILY 09/05/16 [History] Multivitamin [Multi-Day Vitamins] 1 each PO DAILY 09/05/16 [History] Zolpidem [Ambien] 10 mg PO HS PRN 09/05/16 [History] HYDROcodone/Acet 7.5/325 mg [Garland 7.5-325 mg] 1 tab PO BID PRN #14 tablet 09/12 [Rx] Furosemide [Lasix] 40 mg PO DAILY 12/07/16 [History] Metoprolol XL (24 HR) Succ [Toprol Xl] 50 mg PO DAILY 01/02/17 [History] Losartan [Cozaar] 25 mg PO DAILY 02/22/17 [History] Mccloud-3/Dha/Epa/Fish Oil [Fish Oil 1,000 mg Softgel] 2,000 mg PO BID 02/22/17 [ History] Rivaroxaban [Xarelto] 15 mg PO DAILY 02/22/17 [History] clonazePAM [Klonopin] 0.5 mg PO HS PRN 02/22/17 [History] dilTIAZem HCl [Cardizem] 60 mg PO TID 02/22/17 [History] hydrALAZINE [HydrALAZINE] 25 mg PO Q8H PRN 02/22/17 [History] hydroCHLOROthiazide [Hydrochlorothiazide] 25 mg PO DAILY 02/22/17 [History] Amoxicillin/Clavulanate [Augmentin] 875 mg PO BIDWM #28 tablet 02/26/17 [Rx] Levofloxacin [Levaquin] 500 mg PO DAILY #10 tablet 02/26/17 [Rx] Allergies/Adverse Reactions: Allergies No Known Allergies Allergy (Verified 09/05/16 18:47) Labs on day of discharge: Labs from last 24 hours 02/26/17 02/25/17 02/25/17 01:00 16:24 11:26 POC Glucose 121 H 232 H Stl C. diff Tox B Gene Negative 02/25/17 07:15 POC Glucose 122 H Stl C. diff Tox B Gene - Impressions ITS Impressions Foot X-Ray 02/22/17 16:24 IMPRESSION: Grossly stable advanced Charcot arthropathy involving the midfoot. New focal soft tissue swelling with soft tissue gas along the plantar aspect of the midfoot consistent with cellulitis and ulceration. No obvious plain film evidence of osteomyelitis. D/ / 02/22/2017 17:54:34 Viktor Gary MD / lgray Interpreting Provider: Viktor Gary MD Foot MRI 02/22/17 16:25 IMPRESSION: 1. Plantar lateral midfoot soft tissue ulceration with adjacent soft tissue edema versus phlegmon. Diffuse soft tissue edema compatible cellulitis. No drainable fluid collection. 2. Edema versus phlegmon contacting the plantar margin of the cuboid bone which is irregular in appearance with mild edema and a small area of decreased T1 signal that may represent early osteomyelitis. 3. Severe destructive disorganization and fragmentation of the midfoot most likely representing Charcot arthropathy. D/ / Hai Goel MD / Hai Goel MD Interpreting Provider: Hai Goel MD Date of admission: 02/22/17 16:22 Primary care physician: Amarilis Cabrera Consults: 02/22/17 16:25 Consult to Invasive Line Access Team [CONS] Routine Reason for Consult: IV antibiotics Line Type: EPIV 02/22/17 16:27 Consult to Hospitalist [CONS] Routine Consulting Provider: Hospitalist Kathi Reason for Consult: Diabetes mellitus type 2 with multiple comorbidities Time Notified: 16:30 Call Completed: Yes 02/24/17 10:36 Consult to Rail Operator [CONS] Routine Reason for SW Consult: discharge planning Discharging clinician: Juan Davies Anticipated date of discharge: 02/26/17 - Patient Status Disposition: Home, Self-Care Condition: Fair Functional capacity at discharge: uses cane/walker Overall status at discharge: patient is progressing back to baseline - Discharge Instructions Follow Up With: Amarilis Cabrera, CAITY [Primary Care Provider] - Juan Davies DPM [Partnered Physician] - Additional Instructions: #1 home health care to irrigate wound daily and gently packed with Mesalt ribbon secondary dressing multiple bulky 4 x 4's with Kerlix and Jacques wraps. - Diet and Activity Diet: diabetic diet - Hospital Course Hospital course: Mr. Richter is a 56 year old male, who presented to care clinic this past Monday with a significant infection of his right foot with tunneling undermining and drainage with spreading cellulitis. Cultures were taken patient was placed on broad-spectrum, antibiotic. Patient's cellulitis completely resolved. Wound is still present although continues to heal. Patient is presently without clinical evidence of sepsis cellulitis bacteremia. Patient was placed on by mouth antibiotics and local wound care at home - Time Spent with Patient Total time spent providing and/or coordinating discharge services: Less than 30 minutes Specific discharge activities: Patient is homebound with wound care O/home health nursing care for dressing changes daily
[2017-02-26] MEDS ORDERED: Lactobacillus 1 EACH CAP.SPRINK PO SCH (09:00)
[2017-02-26] MEDS: Insulin DETEMIR 100 UNIT/ML X5UNITS SQ SCH (09:56)
--- NOTE | 2017-02-26 11:16 | Internal Med Progress Note ---
<Abundio Akhtar - Last Filed: 02/26/17 11:14> Date of Encounter: 02/26/17 Time of Encounter: 07:45 - Assessment and plan (1) Diabetic foot ulcer Status: Acute Assessment and plan: Culture shows proteus, pansensitive, podiatry managing. Treatment of right diabetic foot ulcer per primary team Plan for discharge today with oral antibiotics Qualifiers: Diabetic foot ulcer location: midfoot Diabetes mellitus type: due to underlying condition Laterality: right Non-pressure ulcer stage: limited to breakdown of skin Qualified Code(s): E08.621 - Diabetes mellitus due to underlying condition with foot ulcer; L97.411 - Non-pressure chronic ulcer of right heel and midfoot limited to breakdown of skin (2) Diabetes Status: Acute Assessment and plan: Patient on 60 units Lantus twice a day with sliding scale for home control. Blood sugars have been controlled in hospital so far. We will continue basal insulin with 60 units Levemir twice a day and high-dose sliding scale If surgical procedure planned, will reduce dose of insulin by half the night prior Qualifiers: Diabetes mellitus type: type 2 Diabetes mellitus complication status: with kidney complications Diabetes mellitus complication detail: with chronic kidney disease Diabetes mellitus mcc insulin use: with remote computer terminal operator use Chronic kidney disease stage: stage 4 (severe) Qualified Code(s): E11.22 - Type 2 diabetes mellitus with diabetic chronic kidney disease; N18.4 - Chronic kidney disease, stage 4 (severe); Z79.4 - terminologist (current) use of insulin (3) Atrial fibrillation Status: Acute Assessment and plan: Patient previously diagnosed with paroxysmal atrial fibrillation. His home medications include diltiazem, metoprolol, and Xarelto. Patient slightly tachycardic likely account of his current infection. Blood pressure is controlled currently. Heart rate regular currently. Continue home medications Qualifiers: Atrial fibrillation type: paroxysmal Qualified Code(s): I48.0 - Paroxysmal atrial fibrillation (4) Charcot's arthropathy associated with type 2 diabetes mellitus Status: Chronic (5) Chronic renal disease Status: Acute Assessment and plan: Patient chronic kidney disease varies between stage III and IV with average GFR oscillating around 30. Currently stable. Avoid nephrotoxic agents Dose medications renally Qualifiers: Chronic kidney disease stage: stage 4 (severe) Qualified Code(s): N18.4 - Chronic kidney disease, stage 4 (severe) (6) Essential hypertension Status: Chronic Assessment and plan: Patient on several medications to help his chronically high blood pressure: Metoprolol succinate 50 mg daily Losartan 25 mg daily Hydrochlorothiazide 25 mg daily Diltiazem 60 mg by mouth 3 times a day Patient also has some when necessary medications for elevated blood pressure including: Hydralazine 25 mg by mouth every 8 hours when necessary Continue medications (7) DVT prophylaxis Status: Acute Assessment and plan: Continue patient Xarelto - Subjective Interval history: Patient reports doing well today. He states he thinks these swelling in his foot has gone down. He denies fevers, chest pain, shortness of breath, nausea/ vomiting, diaphoresis. - Constitutional Vitals: Temp Pulse Resp BP Pulse Ox 97.7 F 74 16 135/84 95 02/26/17 07:12 02/26/17 07:12 02/26/17 07:12 02/26/17 07:12 02/26/17 07:12 General appearance: Present: cooperative, A&O X 3, morbidly obese, pleasant Exam: General: Cooperative, pleasant, no acute distress, alert and oriented 3, answers questions appropriately HEENT: Normocephalic, atraumatic, Conjunctiva pink, sclera anicteric, EOMI, oral mucosa moist, no orophargeal erythema or exudates Respiratory: No accessory muscle usage, clear to auscultation bilaterally, no wheezes/rhonchi/rales appreciated Cardiovascular: Regular rhythm, S1 and S2 present, no murmurs/rubs/gallops/ clicks appreciated GI/abdominal: Nondistended, nontender, soft, normal bowel sounds, no peritoneal signs Extremities: No calf tenderness, noncyanotic, 1-2+ pedal edema in right foot, minimal nonpitting edema in bilateral lower extremities, dressing in place over right foot, small bandage over left great toe, warm, lower extremity pulses palpable and symmetrical Neurological: Alert and oriented 3, no facial droop, no focal deficits Skin: Dry, intact, normal color Internal Medicine: Result - Labs CBC & Chem 7: 02/25/17 03:28 02/25/17 03:28 - ABG Interpretation ABG results: PT/INR, D-dimer PT 20.4 Seconds (9.4-12.1) H 02/22/17 16:46 Consult Discharge Plan - Plan Additional Instructions: #1 home health care to irrigate wound daily and gently packed with Mesalt ribbon secondary dressing multiple bulky 4 x 4's with Kerlix and Jacques wraps. Referrals: Juan Davies DPM [Partnered Physician] - (webrequest made. requested monday per dr. davies) Amarilis Cabrera DEODORIZER OPERATOR [Primary Care Provider] - (WEB REQUEST MADE D/T BEING CLOSED ON THE WEEKEND.) Prescriptions: Amoxicillin/Clavulanate [Augmentin] 875 mg PO BIDWM #28 tablet Levofloxacin [Levaquin] 500 mg PO DAILY #10 tablet <Hieu López R - Last Filed: 02/26/17 13:40> Date of Encounter: 02/26/17 - Assessment and plan (1) Diabetic foot ulcer Status: Acute Qualifiers: Diabetic foot ulcer location: midfoot Diabetes mellitus type: due to underlying condition Laterality: right Non-pressure ulcer stage: limited to breakdown of skin Qualified Code(s): E08.621 - Diabetes mellitus due to underlying condition with foot ulcer; L97.411 - Non-pressure chronic ulcer of right heel and midfoot limited to breakdown of skin (2) Diabetes Status: Acute Qualifiers: Diabetes mellitus type: type 2 Diabetes mellitus complication status: with kidney complications Diabetes mellitus complication detail: with chronic kidney disease Diabetes mellitus remote computer terminal operator insulin use: with remote computer terminal operator use Chronic kidney disease stage: stage 4 (severe) Qualified Code(s): E11.22 - Type 2 diabetes mellitus with diabetic chronic kidney disease; N18.4 - Chronic kidney disease, stage 4 (severe); Z79.4 - FDC (current) use of insulin (3) Atrial fibrillation Status: Acute Qualifiers: Atrial fibrillation type: paroxysmal Qualified Code(s): I48.0 - Paroxysmal atrial fibrillation (4) Essential hypertension Status: Chronic (5) DVT prophylaxis Status: Acute - Constitutional Vitals: Temp Pulse Resp BP Pulse Ox 97.6 F 92 18 131/79 96 02/26/17 11:59 02/26/17 11:59 02/26/17 11:59 02/26/17 11:59 02/26/17 11:59 Internal Medicine: Result - Labs CBC & Chem 7: 02/25/17 03:28 02/25/17 03:28 - ABG Interpretation ABG results: PT/INR, D-dimer PT 20.4 Seconds (9.4-12.1) H 02/22/17 16:46 - Attending Attestation I examined this patient and my medical decision-making was reviewed with the VALUE ADVISOR/PA/Advanced Practice Nurse/Resident Physician. I agree with the documented findings, disposition and treatment plan as described except to the extent set forth below. agree with Dr. Akhtar, management as per primary team.
[2017-02-26 12:05] VITALS: BP 131/79
== END 2017-02-26 12:36 | disposition home or self-care (01) | DRG 380 ==
LOC: 3NENU → SUATTDRO 16:22
PROVIDERS: ADMIT Podiatrist Foot Surgery; ATTEND Internal Medicine

== ENCOUNTER 2020-10-01 14:47 | Inpatient (IN) ==
[2020-10-01 19:10] LABS: Magnesium 2.3 mg/dL (1.6-2.6); Phosphorous 11.3 mg/dL (2.7-4.5)
[2020-10-01 19:11] LABS: Calcium 8.1 mg/dL (8.6-10.3); Potassium 5.6 mEq/L (3.5-5.1)
[2020-10-01] MEDS ORDERED: Naloxone 0.4 MG/ML INJ IVP PRN (19:37)
[2020-10-01] MEDS ORDERED: cefTRIAXone 2,000 MG in Water for inj. (sterile) 20 ML IVP SCH (21:00)
[2020-10-01] MEDS: Azithromycin 500 MG in 0.9 % Sodium Chloride 250 ML IVPB SCH (21:34)
[2020-10-02 03:22] LABS: Basophils # 0.1 K/mcL (0.0-0.2); Basophils % 0.7 %; Eosinophils # 0.5 K/mcL (0.0-0.6); Eosinophils % 5.3 %; Hematocrit 27.2 % (37.5-50.1); Hemoglobin 8.8 g/dL (12.9-16.9); Immature Granulocytes % 0.5 % (0-4); Lymphocytes # 1.4 K/mcL (0.6-4.6); Mean Corpuscular HGB Conc 32.4 g/dL (31.6-35.5); Mean Corpuscular Volume 92.8 fL (83.0-100.0); Mean Platelet Volume 11.7 fL (9.4-12.4); Monocytes # 1.2 K/mcL (0.0-1.3); Monocytes % 13.7 %; Neutrophils # 5.3 K/mcL (1.6-8.9); Platelet Count 153 K/mcL (140-400); Red Blood Count 2.93 M/mcL (4.19-5.50); Red Cell Distribution Width 15.5 % (11.5-14.5); Segmented Neutrophils % 62.8 %; White Blood Count 8.5 K/mcL (4.3-11.1)
[2020-10-02 03:34] LABS: Calcium 7.4 mg/dL (8.6-10.3); Potassium 5.3 mEq/L (3.5-5.1)
[2020-10-02] MEDS ORDERED: 0.9 % Sodium Chloride 250 ML IVC PRN (08:03)
[2020-10-02] MEDS ORDERED: *HR* Heparin 10,000 UNIT/10 ML VIAL IV PRN ×2 (08:03)
[2020-10-02] MEDS ORDERED: 0.9 % Sodium Chloride 1,000 ML PRIME SCH (08:15)
[2020-10-02] MEDS ORDERED: *HR* FentaNYL (PF) 100 MCG/2 ML VIAL IVP ONE (09:20)
[2020-10-02] MEDS ORDERED: Dextrose Gel 15 GM/37.5 ML TUBE PO PRN ×2 (09:23)
[2020-10-02] MEDS ORDERED: *HR* Dextrose 50 % in Water (Vial) 50 ML VIAL IVP PRN (09:23)
[2020-10-02] MEDS ORDERED: D5% in Water 1,000 ML IVC PRN (09:23)
[2020-10-02] MEDS ORDERED: Lidocaine/EPI 1:100k 1% 50 ML VIAL ONE (09:40)
[2020-10-02] MEDS ORDERED: Heparin 1,000 UNITS/500 mL 500 ML ONE (09:40)
[2020-10-02 10:15] LABS: Hepatitis B Surface Antibody < 3.10 mIU/mL
[2020-10-02] MEDS ORDERED: 0.9 % Sodium Chloride 500 ML ONE (10:20)
[2020-10-02 10:27] LABS: Hepatitis B Surface Antigen Nonreactive (Nonreactive)
[2020-10-02] MEDS ORDERED: ceFAZolin 2,000 MG in 0.9 % Sodium Chloride 100 ML IVPB ONE (10:34)
[2020-10-02] MEDS ORDERED: *HR* Heparin 5,000 UNIT/ML VIAL ONE (10:36)
[2020-10-02 10:43] LABS: INR 1.4; Prothrombin Time 15.5 Seconds (9.4-12.1)
[2020-10-02] MEDS ORDERED: CeFAZolin 2,000 MG/50 ML BAG IVPB ONE (10:45)
[2020-10-02] MEDS: Metoprolol XL (24 HR) Succ 50 MG TAB.ER.24H PO SCH (11:47)
[2020-10-02] MEDS ORDERED: Colchicine 0.6 MG TABLET PO PRN (12:20)
[2020-10-02] MEDS: Insulin LISPRO 300 UNITS/3 ML VIAL SUBQ SCH ×2 (14:48→16:20)
[2020-10-02] MEDS ORDERED: *HR* Labetalol 20 MG/4 ML SYRINGE IVP ONE (16:00)
[2020-10-02] MEDS ORDERED: niCARdipine 20 MG/200 ML MLS IVC SCH (17:45)
[2020-10-02] MEDS: Azithromycin 500 MG in 0.9 % Sodium Chloride 250 ML IVPB SCH (20:50)
[2020-10-02] MEDS: cefTRIAXone 1,000 MG in Water for inj. (sterile) 10 ML IVP SCH (20:50)
[2020-10-02] MEDS ORDERED: NON-FORMULARY MEDICATION 1 EACH EACH (Omega-3/Dha/Epa/Fish Oil [Fish Oil 1,000 Mg Softgel] PO SCH (21:00)
[2020-10-03] MEDS: Insulin LISPRO 300 UNITS/3 ML VIAL SUBQ SCH ×5 (00:04→20:59)
[2020-10-03 01:34] LABS: Basophils # 0.1 K/mcL (0.0-0.2); Basophils % 0.8 %; Eosinophils # 0.4 K/mcL (0.0-0.6); Eosinophils % 5.7 %; Hematocrit 26.2 % (37.5-50.1); Hemoglobin 8.4 g/dL (12.9-16.9); Immature Granulocytes % 0.4 % (0-4); Lymphocytes # 1.1 K/mcL (0.6-4.6); Lymphocytes % 14.8 %; Mean Corpuscular HGB Conc 32.1 g/dL (31.6-35.5); Mean Corpuscular Volume 90.3 fL (83.0-100.0); Mean Platelet Volume 11.7 fL (9.4-12.4); Monocytes # 0.9 K/mcL (0.0-1.3); Monocytes % 12.5 %; Neutrophils # 4.7 K/mcL (1.6-8.9); Platelet Count 154 K/mcL (140-400); Red Cell Distribution Width 15.2 % (11.5-14.5); Segmented Neutrophils % 65.8 %; White Blood Count 7.2 K/mcL (4.3-11.1)
[2020-10-03 01:52] LABS: Calcium 7.3 mg/dL (8.6-10.3); Potassium 4.6 mEq/L (3.5-5.1)
[2020-10-03] MEDS: allopurinoL 300 MG TABLET PO SCH (07:09)
[2020-10-03] MEDS: Metoprolol XL (24 HR) Succ 50 MG TAB.ER.24H PO SCH ×2 (07:10→20:47)
[2020-10-03] MEDS ORDERED: *HR* Heparin 10,000 UNIT/10 ML VIAL IV PRN (09:39)
[2020-10-03] MEDS ORDERED: 0.9 % Sodium Chloride 250 ML IVC PRN (09:39)
[2020-10-03] MEDS: cefTRIAXone 1,000 MG in Water for inj. (sterile) 10 ML IVP SCH (20:47)
[2020-10-03] MEDS: Azithromycin 500 MG in 0.9 % Sodium Chloride 250 ML IVPB SCH (20:49)
[2020-10-04 01:37] LABS: Basophils # 0.1 K/mcL (0.0-0.2); Basophils % 0.9 %; Eosinophils # 0.7 K/mcL (0.0-0.6); Eosinophils % 7.7 %; Hematocrit 28.3 % (37.5-50.1); Hemoglobin 8.9 g/dL (12.9-16.9); Immature Granulocytes % 0.6 % (0-4); Lymphocytes # 1.2 K/mcL (0.6-4.6); Lymphocytes % 14.2 %; Mean Corpuscular HGB Conc 31.4 g/dL (31.6-35.5); Mean Corpuscular Hemoglobin 28.8 pg (28.0-33.3); Mean Corpuscular Volume 91.6 fL (83.0-100.0); Mean Platelet Volume 11.4 fL (9.4-12.4); Monocytes # 1.2 K/mcL (0.0-1.3); Monocytes % 13.6 %; Neutrophils # 5.4 K/mcL (1.6-8.9); Platelet Count 180 K/mcL (140-400); Red Blood Count 3.09 M/mcL (4.19-5.50); Red Cell Distribution Width 15.1 % (11.5-14.5); White Blood Count 8.6 K/mcL (4.3-11.1)
[2020-10-04 01:56] LABS: Calcium 7.5 mg/dL (8.6-10.3); Potassium 4.7 mEq/L (3.5-5.1)
[2020-10-04] MEDS: Insulin LISPRO 300 UNITS/3 ML VIAL SUBQ SCH ×4 (07:22→20:31)
[2020-10-04] MEDS: Metoprolol XL (24 HR) Succ 50 MG TAB.ER.24H PO SCH ×2 (07:25→20:32)
[2020-10-04] MEDS: allopurinoL 300 MG TABLET PO SCH (07:25)
[2020-10-04] MEDS ORDERED: Ergocalciferol (VIT D2) 50,000 UNIT (1.25MG) CAP PO SCH (12:20)
[2020-10-04 17:22] LABS: Bilirubin,Urine Negative (Negative); Blood,Urine Moderate (Negative); Clarity,Urine Clear (Clear); Color,Urine Light-Yellow (Yellow); Glucose,Urine (UA) 300 mg/dL (Normal); Ketones,Urine Negative (Negative); Leukocyte Esterase,Urine Negative (Negative); Nitrite,Urine Negative (Negative); PH,Urine 7.5 pH Units (5.0-8.0); Protein,Urine >=600 mg/dL (Neg-Trace); RBC,Urine 0-3 per hpf (0-3); Urobilinogen,Urine Normal (Normal)
[2020-10-04 18:06] LABS: Sodium, Urine 19.7 mEq/L
[2020-10-04] MEDS: cefTRIAXone 1,000 MG in Water for inj. (sterile) 10 ML IVP SCH (20:32)
[2020-10-04] MEDS: Azithromycin 500 MG in 0.9 % Sodium Chloride 250 ML IVPB SCH (20:33)
[2020-10-05 06:12] LABS: Basophils # 0.1 K/mcL (0.0-0.2); Basophils % 0.8 %; Eosinophils # 0.8 K/mcL (0.0-0.6); Eosinophils % 7.5 %; Hematocrit 27.1 % (37.5-50.1); Hemoglobin 8.8 g/dL (12.9-16.9); Immature Granulocytes % 0.5 % (0-4); Lymphocytes # 1.5 K/mcL (0.6-4.6); Lymphocytes % 14.5 %; Mean Corpuscular HGB Conc 32.5 g/dL (31.6-35.5); Mean Corpuscular Hemoglobin 29.8 pg (28.0-33.3); Mean Corpuscular Volume 91.9 fL (83.0-100.0); Mean Platelet Volume 11.1 fL (9.4-12.4); Monocytes # 1.3 K/mcL (0.0-1.3); Monocytes % 13.1 %; Neutrophils # 6.4 K/mcL (1.6-8.9); Platelet Count 178 K/mcL (140-400); Red Blood Count 2.95 M/mcL (4.19-5.50); Red Cell Distribution Width 14.8 % (11.5-14.5); Segmented Neutrophils % 63.6 %; White Blood Count 10.1 K/mcL (4.3-11.1)
[2020-10-05 06:32] LABS: Calcium 7.7 mg/dL (8.6-10.3); Potassium 4.6 mEq/L (3.5-5.1)
[2020-10-05] MEDS ORDERED: *HR* Heparin 10,000 UNIT/10 ML VIAL IV PRN (07:36)
[2020-10-05] MEDS ORDERED: 0.9 % Sodium Chloride 250 ML IVC PRN (07:36)
[2020-10-05] MEDS: Metoprolol XL (24 HR) Succ 50 MG TAB.ER.24H PO SCH ×2 (08:46→20:56)
[2020-10-05] MEDS: amLODIPine 5 MG TABLET PO SCH (08:46)
[2020-10-05] MEDS: allopurinoL 300 MG TABLET PO SCH (08:47)
[2020-10-05] MEDS: Insulin LISPRO 300 UNITS/3 ML VIAL SUBQ SCH ×4 (08:47→20:56)
[2020-10-05] MEDS: cefTRIAXone 1,000 MG in Water for inj. (sterile) 10 ML IVP SCH (20:52)
[2020-10-05] MEDS: Azithromycin 500 MG in 0.9 % Sodium Chloride 250 ML IVPB SCH (20:53)
[2020-10-06 01:52] LABS: Basophils # 0.1 K/mcL (0.0-0.2); Basophils % 0.8 %; Eosinophils # 0.6 K/mcL (0.0-0.6); Eosinophils % 6.8 %; Hematocrit 27.4 % (37.5-50.1); Hemoglobin 8.9 g/dL (12.9-16.9); Immature Granulocytes % 0.5 % (0-4); Lymphocytes # 1.3 K/mcL (0.6-4.6); Lymphocytes % 15.8 %; Mean Corpuscular HGB Conc 32.5 g/dL (31.6-35.5); Mean Corpuscular Hemoglobin 29.5 pg (28.0-33.3); Mean Corpuscular Volume 90.7 fL (83.0-100.0); Mean Platelet Volume 10.9 fL (9.4-12.4); Monocytes # 1.1 K/mcL (0.0-1.3); Monocytes % 13.3 %; Neutrophils # 5.2 K/mcL (1.6-8.9); Platelet Count 180 K/mcL (140-400); Red Blood Count 3.02 M/mcL (4.19-5.50); Red Cell Distribution Width 14.6 % (11.5-14.5); Segmented Neutrophils % 62.8 %; White Blood Count 8.4 K/mcL (4.3-11.1)
[2020-10-06 02:12] LABS: Calcium 7.6 mg/dL (8.6-10.3); Potassium 4.2 mEq/L (3.5-5.1)
[2020-10-06] MEDS ORDERED: *HR* Heparin 10,000 UNIT/10 ML VIAL IV PRN (07:38)
[2020-10-06] MEDS ORDERED: 0.9 % Sodium Chloride 250 ML IVC PRN (07:38)
[2020-10-06] MEDS ORDERED: 0.9 % Sodium Chloride 1,000 ML PRIME SCH (07:45)
[2020-10-06] MEDS: Insulin LISPRO 300 UNITS/3 ML VIAL SUBQ SCH ×4 (07:55→22:24)
[2020-10-06] MEDS: Metoprolol XL (24 HR) Succ 50 MG TAB.ER.24H PO SCH ×2 (11:58→22:22)
[2020-10-06] MEDS: amLODIPine 5 MG TABLET PO SCH (11:58)
[2020-10-06] MEDS: allopurinoL 300 MG TABLET PO SCH (11:59)
[2020-10-06] MEDS ORDERED: Acetaminophen 325 MG TABLET PO PRN (22:15)
[2020-10-06] MEDS: Apixaban 5 MG TABLET PO SCH (22:22)
[2020-10-07 04:06] LABS: Calcium 7.4 mg/dL (8.6-10.3); Potassium 4.4 mEq/L (3.5-5.1)
[2020-10-07] MEDS: Insulin LISPRO 300 UNITS/3 ML VIAL SUBQ SCH ×3 (07:34→15:57)
[2020-10-07] MEDS ORDERED: *HR* Heparin 10,000 UNIT/10 ML VIAL IV PRN (07:38)
[2020-10-07] MEDS ORDERED: 0.9 % Sodium Chloride 250 ML IVC PRN (07:38)
[2020-10-07] MEDS ORDERED: 0.9 % Sodium Chloride 1,000 ML PRIME SCH (07:45)
[2020-10-07] MEDS: allopurinoL 300 MG TABLET PO SCH (08:16)
[2020-10-07] MEDS: Apixaban 5 MG TABLET PO SCH (08:17)
[2020-10-07] MEDS: amLODIPine 5 MG TABLET PO SCH (14:04)
[2020-10-07] MEDS: Metoprolol XL (24 HR) Succ 50 MG TAB.ER.24H PO SCH (14:04)
[2020-10-07] MEDS ORDERED: FLU Vac QV 20-21 (6Month+)/PF 0.5 ML SYRINGE IM ONE (14:36)
[2020-10-07 15:44] VITALS: BP 132/81
== END 2020-10-07 16:56 | disposition home or self-care (01) | DRG 469 ==
LOC: 2ANU → SUATTDRO 17:57 → 2NNU 10-02 20:17 → 2ANU 10-06 15:30
PROVIDERS: ADMIT Internal Medicine; ATTEND Family Medicine
PROC: IRPERMA (2020-10-02 12:30)

== ENCOUNTER 2021-06-11 17:34 | Inpatient (IN) ==
[2021-06-11] MEDS ORDERED: Isovue-370 500 ML BOTTLE IVP ONE (20:35)
[2021-06-11 21:00] LABS: Basophils # 0.1 K/mcL (0.0-0.2); Basophils % 0.3 %; Eosinophils # 0.1 K/mcL (0.0-0.6); Eosinophils % 0.7 %; Hematocrit 30.3 % (37.5-50.1); Hemoglobin 9.7 g/dL (12.9-16.9); Immature Granulocytes % 1.6 % (0-4); Lymphocytes # 1.4 K/mcL (0.6-4.6); Lymphocytes % 9.7 %; Mean Corpuscular Hemoglobin 31.4 pg (28.0-33.3); Mean Corpuscular Volume 98.1 fL (83.0-100.0); Mean Platelet Volume 10.8 fL (9.4-12.4); Monocytes # 1.4 K/mcL (0.0-1.3); Monocytes % 9.5 %; Neutrophils # 11.5 K/mcL (1.6-8.9); Platelet Count 188 K/mcL (140-400); Red Blood Count 3.09 M/mcL (4.19-5.50); Red Cell Distribution Width 15.9 % (11.5-14.5); Segmented Neutrophils % 78.2 %; White Blood Count 14.7 K/mcL (4.3-11.1)
[2021-06-11 21:07] LABS: INR 1.1; Prothrombin Time 12.3 Seconds (9.4-12.1)
[2021-06-11 21:10] LABS: Activated Partial Thrombo Time 28.9 Seconds (26.0-36.0)
[2021-06-11 21:22] LABS: Albumin 3.7 g/dL (3.5-5.7); Bilirubin,Total 0.3 mg/dL (0.3-1.0); Calcium 8.8 mg/dL (8.6-10.3); Globulin 3.6 g/dL (2.4-3.5); Potassium 4.9 mEq/L (3.5-5.1); Total Protein 7.3 g/dL (6.4-8.9)
[2021-06-11] MEDS ORDERED: Vancomycin 2,000 MG/520 ML IV.SOLN IVPB ONE (21:44)
[2021-06-11] MEDS ORDERED: Piperacillin/Tazobactam 3.375 GM in 0.9 % Sodium Chloride Mini Bag 100 ML IVPB ONE (21:44)
[2021-06-11] MEDS ORDERED: Clindamycin 600 MG/50 ML 600 MG/50 ML IV.SOLN IVPB ONE (22:46)
[2021-06-12] MEDS ORDERED: Naloxone 0.4 MG/ML INJ IVP PRN (03:51)
[2021-06-12] MEDS ORDERED: Melatonin 3 MG TABLET PO PRN (03:51)
[2021-06-12] MEDS ORDERED: D5% in Water 1,000 ML IVC PRN (03:53)
[2021-06-12] MEDS ORDERED: Dextrose Gel 15 GM/37.5 ML TUBE PO PRN ×2 (03:53)
[2021-06-12] MEDS ORDERED: *HR* Dextrose 50 % in Water (Syg) 50 ML SYRINGE IVP PRN (03:53)
[2021-06-12] MEDS: Insulin LISPRO 300 UNITS/3 ML VIAL SUBQ SCH ×3 (05:15→17:55)
[2021-06-12] MEDS: Clindamycin 600 MG/50 ML 600 MG/50 ML IV.SOLN IVPB SCH ×2 (05:49→18:04)
[2021-06-12] MEDS ORDERED: *HR* Heparin 5,000 UNIT/ML VIAL SQ SCH (06:00)
[2021-06-12] MEDS: Aspirin 81 MG TAB.CHEW PO SCH (07:55)
[2021-06-12] MEDS: Piperacillin/Tazobactam 3.375 GM in 0.9 % Sodium Chloride Mini Bag 100 ML IVPB SCH ×2 (10:20→21:33)
[2021-06-12 10:42] LABS: Vancomycin,Random 18 mcg/mL
[2021-06-12] MEDS ORDERED: Gentamicin Oint 15 GM TUBE TP SCH (10:45)
[2021-06-12] MEDS ORDERED: 0.9 % Sodium Chloride 250 ML IVC PRN ×2 (11:13→11:35)
[2021-06-12] MEDS ORDERED: 0.9 % Sodium Chloride 1,000 ML PRIME SCH (11:15)
[2021-06-12] MEDS ORDERED: *HR* Heparin 10,000 UNIT/10 ML VIAL ONE (11:29)
[2021-06-12] MEDS ORDERED: 0.9 % Sodium Chloride 2,000 ML ONE (11:29)
[2021-06-12] MEDS ORDERED: *HR* Heparin 10,000 UNIT/10 ML VIAL IV PRN (11:35)
[2021-06-12 13:14] LABS: Hepatitis B Surface Antibody < 3.10 mIU/mL
[2021-06-12 13:25] LABS: Hepatitis B Surface Antigen Nonreactive (Nonreactive)
[2021-06-12] MEDS: amLODIPine 5 MG TABLET PO SCH (18:04)
[2021-06-12] MEDS: allopurinoL 300 MG TABLET PO SCH (18:05)
[2021-06-12 19:39] LABS: C-Reactive Protein 3 mg/L (Less than 10)
[2021-06-12] MEDS ORDERED: Insulin DETEMIR 100 UNIT/ML X5UNITS SUBQ SCH (21:00)
[2021-06-12] MEDS ORDERED: Apixaban 5 MG TABLET PO SCH (21:00)
[2021-06-12] MEDS: Metoprolol 100 MG TABLET PO SCH (21:34)
[2021-06-13] MEDS: Insulin LISPRO 300 UNITS/3 ML VIAL SUBQ SCH ×4 (01:03→17:36)
[2021-06-13] MEDS ORDERED: Clindamycin 600 MG/50 ML 600 MG/50 ML IV.SOLN IVPB SCH (06:00)
[2021-06-13] MEDS ORDERED: *HR* Dextrose 50 % in Water (Vial) 50 ML VIAL ONE (07:40)
[2021-06-13] MEDS ORDERED: ROPIVACAINE/PF/NS 0.25% 1 EACH SYRINGE INTRAART ONE (07:44)
[2021-06-13] MEDS ORDERED: *HR* FentaNYL (PF) 100 MCG/2 ML VIAL ONE (07:57)
[2021-06-13] MEDS ORDERED: *HR* Midazolam HCl 2 MG/2 ML VIAL ONE (08:07)
[2021-06-13] MEDS ORDERED: D5% in Lactated Ringers 1,000 ML IVC SCH (09:00)
[2021-06-13] MEDS: allopurinoL 300 MG TABLET PO SCH (10:00)
[2021-06-13] MEDS: Metoprolol 100 MG TABLET PO SCH ×2 (10:01→20:47)
[2021-06-13] MEDS: Aspirin 81 MG TAB.CHEW PO SCH (10:01)
[2021-06-13] MEDS: amLODIPine 5 MG TABLET PO SCH (10:01)
[2021-06-13] MEDS: Piperacillin/Tazobactam 3.375 GM in 0.9 % Sodium Chloride Mini Bag 100 ML IVPB SCH ×2 (10:01→22:27)
[2021-06-13] MEDS ORDERED: D5% in Water 1,000 ML IVC PRN (11:33)
[2021-06-13] MEDS ORDERED: 0.9 % Sodium Chloride 1,000 ML PRIME SCH (11:33)
[2021-06-13] MEDS ORDERED: Dextrose Gel 15 GM/37.5 ML TUBE PO PRN ×2 (11:33)
[2021-06-13] MEDS ORDERED: 0.9 % Sodium Chloride 250 ML IVC PRN ×2 (11:33)
[2021-06-13] MEDS ORDERED: *HR* Dextrose 50 % in Water (Syg) 50 ML SYRINGE IVP PRN (11:33)
[2021-06-13] MEDS ORDERED: *HR* Heparin 10,000 UNIT/10 ML VIAL IV PRN (11:33)
[2021-06-13] MEDS ORDERED: Naloxone 0.4 MG/ML INJ IVP PRN (11:33)
[2021-06-13] MEDS ORDERED: Melatonin 3 MG TABLET PO PRN (11:33)
[2021-06-13 11:37] LABS: Hematocrit 29.1 % (37.5-50.1); Hemoglobin 9.1 g/dL (12.9-16.9); Mean Corpuscular HGB Conc 31.3 g/dL (31.6-35.5); Mean Corpuscular Hemoglobin 31.1 pg (28.0-33.3); Mean Corpuscular Volume 99.3 fL (83.0-100.0); Mean Platelet Volume 11.2 fL (9.4-12.4); Platelet Count 164 K/mcL (140-400); Red Blood Count 2.93 M/mcL (4.19-5.50); Red Cell Distribution Width 15.9 % (11.5-14.5); White Blood Count 12.3 K/mcL (4.3-11.1)
[2021-06-13 12:00] LABS: Calcium 8.8 mg/dL (8.6-10.3); Potassium 5.8 mEq/L (3.5-5.1)
[2021-06-13] MEDS: Clindamycin 600 MG/50 ML 600 MG/50 ML IV.SOLN IVPB SCH ×2 (16:20→22:26)
[2021-06-13] MEDS ORDERED: *HR* OxyCODONE Immed Rel 5 MG TABLET PO PRN ×2 (16:21→16:22)
[2021-06-14] MEDS: Insulin LISPRO 300 UNITS/3 ML VIAL SUBQ SCH ×4 (02:04→17:51)
[2021-06-14] MEDS: Clindamycin 600 MG/50 ML 600 MG/50 ML IV.SOLN IVPB SCH ×3 (05:37→20:04)
[2021-06-14 05:55] LABS: Hemoglobin 7.8 g/dL (12.9-16.9); Mean Corpuscular HGB Conc 31.2 g/dL (31.6-35.5); Mean Corpuscular Volume 99.2 fL (83.0-100.0); Mean Platelet Volume 11.4 fL (9.4-12.4); Platelet Count 144 K/mcL (140-400); Red Blood Count 2.52 M/mcL (4.19-5.50); Red Cell Distribution Width 16.1 % (11.5-14.5); White Blood Count 10.3 K/mcL (4.3-11.1)
[2021-06-14 06:16] LABS: Calcium 8.4 mg/dL (8.6-10.3); Potassium 6.4 mEq/L (3.5-5.1)
[2021-06-14] MEDS ORDERED: 0.9 % Sodium Chloride 250 ML IVC PRN (07:07)
[2021-06-14] MEDS ORDERED: Insulin Human Regular 10 UNIT in 0.9 % Sodium Chloride 10 ML IV ONE (07:25)
[2021-06-14] MEDS ORDERED: *HR* Dextrose 50 % in Water (Syg) 50 ML SYRINGE IVP ONE (07:25)
[2021-06-14] MEDS ORDERED: Calcium Gluconate 1gm/50mL 1 GM/50 ML BAG IVPB SCH (07:30)
[2021-06-14] MEDS ORDERED: SODIUM ZIRCONIUM CYCLOSILICATE 5 GM POWD.PACK PO ONE (08:08)
[2021-06-14] MEDS: Aspirin 81 MG TAB.CHEW PO SCH (09:56)
[2021-06-14] MEDS: Metoprolol 100 MG TABLET PO SCH ×2 (09:57→20:34)
[2021-06-14] MEDS: Gentamicin Oint 15 GM TUBE TP SCH (09:57)
[2021-06-14] MEDS: SODIUM ZIRCONIUM CYCLOSILICATE 5 GM POWD.PACK PO SCH (09:57)
[2021-06-14] MEDS: amLODIPine 5 MG TABLET PO SCH (09:58)
[2021-06-14] MEDS: allopurinoL 300 MG TABLET PO SCH (09:58)
[2021-06-14] MEDS ORDERED: Vancomycin 1,250 MG/262.5 ML IV.SOLN IVPB ONE (16:00)
[2021-06-14] MEDS: Piperacillin/Tazobactam 3.375 GM in 0.9 % Sodium Chloride Mini Bag 100 ML IVPB SCH ×2 (19:15→20:03)
[2021-06-15] MEDS: Insulin LISPRO 300 UNITS/3 ML VIAL SUBQ SCH ×4 (01:24→18:18)
[2021-06-15 03:32] LABS: Hematocrit 24.1 % (37.5-50.1); Hemoglobin 7.7 g/dL (12.9-16.9); Mean Corpuscular Volume 97.2 fL (83.0-100.0); Mean Platelet Volume 11.1 fL (9.4-12.4); Platelet Count 112 K/mcL (140-400); Red Blood Count 2.48 M/mcL (4.19-5.50); Red Cell Distribution Width 15.6 % (11.5-14.5); White Blood Count 7.1 K/mcL (4.3-11.1)
[2021-06-15 03:56] LABS: Calcium 8.2 mg/dL (8.6-10.3); Phosphorous 5.2 mg/dL (2.7-4.5); Potassium 5.3 mEq/L (3.5-5.1)
[2021-06-15] MEDS: Piperacillin/Tazobactam 3.375 GM in 0.9 % Sodium Chloride Mini Bag 100 ML IVPB SCH ×2 (05:15→18:16)
[2021-06-15] MEDS ORDERED: *HR* FentaNYL (PF) 100 MCG/2 ML VIAL IVP PRN (06:00)
[2021-06-15] MEDS ORDERED: Ondansetron 4 MG/2 ML VIAL IVP PRN ×2 (06:00→15:46)
[2021-06-15] MEDS ORDERED: *HR* HYDROmorphone PF 0.5 MG/0.5 ML SYRINGE IVP PRN ×2 (06:21→15:46)
[2021-06-15] MEDS: Gentamicin Oint 15 GM TUBE TP SCH (09:09)
[2021-06-15] MEDS: allopurinoL 300 MG TABLET PO SCH (09:11)
[2021-06-15] MEDS: Metoprolol 100 MG TABLET PO SCH (09:11)
[2021-06-15] MEDS: amLODIPine 5 MG TABLET PO SCH (09:12)
[2021-06-15] MEDS: Aspirin 81 MG TAB.CHEW PO SCH (09:12)
[2021-06-15] MEDS: SODIUM ZIRCONIUM CYCLOSILICATE 5 GM POWD.PACK PO SCH (09:13)
[2021-06-15] MEDS ORDERED: DilTIAZem CD (24hr) 180 MG CAP.ER.24H PO SCH (10:15)
[2021-06-15] MEDS ORDERED: Bupivacaine-MPF 0.25% 10 ML VIAL ONE (11:49)
[2021-06-15] MEDS ORDERED: Lidocaine -MPF 2% 5 ML VIAL ONE (11:59)
[2021-06-15] MEDS ORDERED: Bupivacaine/Clonidine Syringe 20 ML, Syringe LUER-LOK 1 EACH TP ONE (12:00)
[2021-06-15] MEDS ORDERED: 0.9 % Sodium Chloride 1,000 ML IVC SCH ×2 (12:15→15:46)
[2021-06-15] MEDS ORDERED: D5% in Water 1,000 ML IVC PRN (15:46)
[2021-06-15] MEDS ORDERED: Dextrose Gel 15 GM/37.5 ML TUBE PO PRN ×2 (15:46)
[2021-06-15] MEDS ORDERED: Melatonin 3 MG TABLET PO PRN (15:46)
[2021-06-15] MEDS ORDERED: *HR* OxyCODONE Immed Rel 5 MG TABLET PO PRN ×2 (15:46)
[2021-06-15] MEDS ORDERED: *HR* Dextrose 50 % in Water (Syg) 50 ML SYRINGE IVP PRN (15:46)
[2021-06-15] MEDS ORDERED: Naloxone 0.4 MG/ML INJ IVP PRN (15:46)
[2021-06-15] MEDS ORDERED: Metoprolol XL (24 HR) Succ 50 MG TAB.ER.24H PO SCH (21:00)
[2021-06-15] MEDS: Metoprolol XL (24 HR) Succ 50 MG TAB.ER.24H PO SCH (21:44)
[2021-06-16] MEDS: Insulin LISPRO 300 UNITS/3 ML VIAL SUBQ SCH ×3 (01:25→12:32)
[2021-06-16 04:30] LABS: Hematocrit 23.5 % (37.5-50.1); Hemoglobin 7.7 g/dL (12.9-16.9); Mean Corpuscular HGB Conc 32.8 g/dL (31.6-35.5); Mean Corpuscular Volume 94.8 fL (83.0-100.0); Mean Platelet Volume 11.8 fL (9.4-12.4); Platelet Count 128 K/mcL (140-400); Red Blood Count 2.48 M/mcL (4.19-5.50); Red Cell Distribution Width 15.7 % (11.5-14.5); White Blood Count 6.5 K/mcL (4.3-11.1)
[2021-06-16 04:54] LABS: Calcium 8.2 mg/dL (8.6-10.3); Potassium 5.5 mEq/L (3.5-5.1)
[2021-06-16] MEDS: Piperacillin/Tazobactam 3.375 GM in 0.9 % Sodium Chloride Mini Bag 100 ML IVPB SCH ×2 (05:28→21:59)
[2021-06-16] MEDS ORDERED: 0.9 % Sodium Chloride 250 ML IVC PRN (07:10)
[2021-06-16] MEDS ORDERED: *HR* Heparin 10,000 UNIT/10 ML VIAL IV PRN (07:49)
[2021-06-16] MEDS: allopurinoL 300 MG TABLET PO SCH (08:25)
[2021-06-16] MEDS: Metoprolol XL (24 HR) Succ 50 MG TAB.ER.24H PO SCH ×2 (08:25→20:30)
[2021-06-16] MEDS: Aspirin 81 MG TAB.CHEW PO SCH (08:25)
[2021-06-16] MEDS: DilTIAZem CD (24hr) 180 MG CAP.ER.24H PO SCH (08:26)
[2021-06-16] MEDS: SODIUM ZIRCONIUM CYCLOSILICATE 5 GM POWD.PACK PO SCH (08:26)
[2021-06-16] MEDS ORDERED: Vancomycin 500 MG in 0.9 % Sodium Chloride Mini Bag 100 ML IVPB ONE (16:00)
[2021-06-16] MEDS ORDERED: SODIUM CHLORIDE MINI 0.9% IVPB SCH (17:00)
[2021-06-16] MEDS ORDERED: MICAFUNGIN IVPB SCH (17:00)
[2021-06-17] MEDS: Insulin LISPRO 300 UNITS/3 ML VIAL SUBQ SCH ×5 (00:50→18:58)
[2021-06-17 02:45] LABS: Hematocrit 23.8 % (37.5-50.1); Hemoglobin 7.8 g/dL (12.9-16.9); Mean Corpuscular HGB Conc 32.8 g/dL (31.6-35.5); Mean Corpuscular Hemoglobin 31.6 pg (28.0-33.3); Mean Corpuscular Volume 96.4 fL (83.0-100.0); Mean Platelet Volume 10.6 fL (9.4-12.4); Platelet Count 117 K/mcL (140-400); Red Blood Count 2.47 M/mcL (4.19-5.50); Red Cell Distribution Width 15.5 % (11.5-14.5); White Blood Count 6.7 K/mcL (4.3-11.1)
[2021-06-17 03:11] LABS: Iron 38 mcg/dL (65-175)
[2021-06-17 03:15] LABS: Calcium 8.1 mg/dL (8.6-10.3); Potassium 4.1 mEq/L (3.5-5.1)
[2021-06-17 03:23] LABS: Ferritin 991 ng/mL (20-250)
[2021-06-17] MEDS: Piperacillin/Tazobactam 3.375 GM in 0.9 % Sodium Chloride Mini Bag 100 ML IVPB SCH ×2 (05:22→19:32)
[2021-06-17 06:18] LABS: % Iron Saturation 20 % (20-55); Transferrin 137 mg/dL (203-362)
[2021-06-17] MEDS: SODIUM ZIRCONIUM CYCLOSILICATE 5 GM POWD.PACK PO SCH (08:25)
[2021-06-17] MEDS: DilTIAZem CD (24hr) 180 MG CAP.ER.24H PO SCH (08:26)
[2021-06-17] MEDS: Aspirin 81 MG TAB.CHEW PO SCH (08:26)
[2021-06-17] MEDS: Metoprolol XL (24 HR) Succ 50 MG TAB.ER.24H PO SCH ×2 (08:26→19:32)
[2021-06-17] MEDS: allopurinoL 300 MG TABLET PO SCH (08:26)
[2021-06-17] MEDS ORDERED: SODIUM CHLORIDE 0.9% IVPB SCH ×2 (16:00→17:00)
[2021-06-17] MEDS ORDERED: MICAFUNGIN IVPB SCH ×2 (16:00→17:00)
[2021-06-18 05:24] LABS: Calcium 8.2 mg/dL (8.6-10.3); Potassium 4.1 mEq/L (3.5-5.1)
[2021-06-18] MEDS: Insulin LISPRO 300 UNITS/3 ML VIAL SUBQ SCH ×4 (06:01→17:37)
[2021-06-18 06:05] LABS: Hematocrit 23.5 % (37.5-50.1); Hemoglobin 7.6 g/dL (12.9-16.9); Mean Corpuscular HGB Conc 32.3 g/dL (31.6-35.5); Mean Corpuscular Hemoglobin 31.7 pg (28.0-33.3); Mean Corpuscular Volume 97.9 fL (83.0-100.0); Mean Platelet Volume 11.4 fL (9.4-12.4); Platelet Count 132 K/mcL (140-400); Red Cell Distribution Width 15.8 % (11.5-14.5); White Blood Count 6.9 K/mcL (4.3-11.1)
[2021-06-18] MEDS: Piperacillin/Tazobactam 3.375 GM in 0.9 % Sodium Chloride Mini Bag 100 ML IVPB SCH ×2 (06:19→18:42)
[2021-06-18] MEDS ORDERED: 0.9 % Sodium Chloride 250 ML IVC PRN (07:21)
[2021-06-18] MEDS: DilTIAZem CD (24hr) 180 MG CAP.ER.24H PO SCH (08:00)
[2021-06-18] MEDS: allopurinoL 300 MG TABLET PO SCH (08:00)
[2021-06-18] MEDS: Metoprolol XL (24 HR) Succ 50 MG TAB.ER.24H PO SCH ×2 (08:00→20:37)
[2021-06-18] MEDS: Aspirin 81 MG TAB.CHEW PO SCH (08:00)
[2021-06-18] MEDS: SODIUM ZIRCONIUM CYCLOSILICATE 5 GM POWD.PACK PO SCH (08:01)
[2021-06-18] MEDS ORDERED: Micafungin 100 MG in 0.9 % Sodium Chloride Mini Bag 100 ML IVPB SCH (17:00)
[2021-06-18] MEDS ORDERED: Insulin LISPRO 300 UNITS/3 ML VIAL SUBQ SCH (21:00)
[2021-06-19] MEDS: Piperacillin/Tazobactam 3.375 GM in 0.9 % Sodium Chloride Mini Bag 100 ML IVPB SCH (05:43)
[2021-06-19 07:15] VITALS: PULSE 61
[2021-06-19] MEDS: Insulin LISPRO 300 UNITS/3 ML VIAL SUBQ SCH ×2 (09:44→12:03)
[2021-06-19] MEDS: SODIUM ZIRCONIUM CYCLOSILICATE 5 GM POWD.PACK PO SCH (09:51)
[2021-06-19] MEDS: Metoprolol XL (24 HR) Succ 50 MG TAB.ER.24H PO SCH (09:52)
[2021-06-19] MEDS: Aspirin 81 MG TAB.CHEW PO SCH (09:52)
[2021-06-19] MEDS: DilTIAZem CD (24hr) 180 MG CAP.ER.24H PO SCH (09:52)
[2021-06-19] MEDS: allopurinoL 300 MG TABLET PO SCH (09:52)
[2021-06-19 10:48] VITALS: BP 159/80; TEMP 98.5; O2SAT 93
== END 2021-06-19 15:51 | DRG 317 ==
LOC: 3ANU 17:34 → EMEROOARM 17:34 → 3ANU 06-12 04:58 → SUATTDRO 06-12 14:02
PROVIDERS: ADMIT Internal Medicine; ATTEND Internal Medicine

== ENCOUNTER 2021-06-28 13:50 | Inpatient (IN) ==
[2021-06-28] MEDS ORDERED: Ondansetron 4 MG/2 ML VIAL IVP ONE (14:04)
[2021-06-28 14:56] LABS: Basophils % 0.3 %; Eosinophils % 0.5 %; Hematocrit 28.8 % (37.5-50.1); Hemoglobin 9.3 g/dL (12.9-16.9); Immature Granulocytes % 0.9 % (0-4); Lymphocytes # 0.9 K/mcL (0.6-4.6); Lymphocytes % 15.4 %; Mean Corpuscular HGB Conc 32.3 g/dL (31.6-35.5); Mean Corpuscular Hemoglobin 30.6 pg (28.0-33.3); Mean Corpuscular Volume 94.7 fL (83.0-100.0); Mean Platelet Volume 11.3 fL (9.4-12.4); Monocytes # 0.6 K/mcL (0.0-1.3); Monocytes % 9.6 %; Neutrophils # 4.3 K/mcL (1.6-8.9); Platelet Count 127 K/mcL (140-400); Red Blood Count 3.04 M/mcL (4.19-5.50); Red Cell Distribution Width 15.9 % (11.5-14.5); Segmented Neutrophils % 73.3 %; White Blood Count 5.8 K/mcL (4.3-11.1)
[2021-06-28 15:47] LABS: Albumin 3.5 g/dL (3.5-5.7); Albumin/Globulin Ratio 0.9 (1.1-2.2); Bilirubin,Total 0.4 mg/dL (0.3-1.0); Calcium 8.9 mg/dL (8.6-10.3); Globulin 3.9 g/dL (2.4-3.5); Potassium 4.4 mEq/L (3.5-5.1); Total Protein 7.4 g/dL (6.4-8.9)
[2021-06-28] MEDS ORDERED: Ondansetron 4 MG/2 ML VIAL IVP PRN (19:23)
[2021-06-28] MEDS ORDERED: Naloxone 0.4 MG/ML INJ IVP PRN (19:23)
[2021-06-28] MEDS ORDERED: Vancomycin 500 MG in 0.9 % Sodium Chloride Mini Bag 100 ML IVPB ONE (21:00)
[2021-06-28] MEDS: Dexamethasone Sodium Phos/PF 10 MG/ML VIAL IVP SCH (22:12)
[2021-06-28] MEDS: Cefepime HCl 1,000 MG in Water for inj. (sterile) 10 ML IVP SCH (22:12)
[2021-06-28] MEDS: Fluconazole 200 MG/100 ML 100 MG/50 ML BAG IVPB SCH (22:51)
[2021-06-28 23:11] LABS: Bilirubin,Urine Negative (Negative); Blood,Urine Trace (Negative); Clarity,Urine Clear (Clear); Color,Urine Light-Yellow (Yellow); Glucose,Urine (UA) 70 mg/dL (Normal); Ketones,Urine Negative (Negative); Leukocyte Esterase,Urine Negative (Negative); Mucus,Urine Few per lpf (None-Few); Nitrite,Urine Negative (Negative); PH,Urine 7.5 pH Units (5.0-8.0); Protein,Urine >=600 mg/dL (Neg-Trace); RBC,Urine 0-3 per hpf (0-3); Specific Gravity,Urine 1.025 (1.010-1.025); Squamous Epithelial Cell,Urine Few per hpf (None-Few); Urobilinogen,Urine Normal (Normal)
[2021-06-29 00:50] LABS: Adenovirus Not Detected (Not Detect); Coronavirus 229E Not Detected (Not Detect); Coronavirus HKU1 Not Detected (Not Detect); Coronavirus NL63 Not Detected (Not Detect); Coronavirus OC43 Not Detected (Not Detect)
[2021-06-29 00:52] LABS: Bordetella Pertussis Not Detected (Not Detect); Chlamydophila pneumoniae Not Detected (Not Detect); Human Metapneumovirus Not Detected (Not Detect); Human Rhinovirus/Enterovirus Not Detected (Not Detect); Influenza A Subtype 2009 H1 Not Detected (Not Detect); Influenza B Not Detected (Not Detect); Mycoplasma pneumoniae Not Detected (Not Detect); Parainfluenza Virus 1 Not Detected (Not Detect); Parainfluenza Virus 2 Not Detected (Not Detect); Parainfluenza Virus 3 Not Detected (Not Detect); Parainfluenza Virus 4 Not Detected (Not Detect); Respiratory Syncytial Virus Not Detected (Not Detect); SARS-CoV-2 DETECTED (Not Detect)
[2021-06-29] MEDS ORDERED: Dextrose Gel 15 GM/37.5 ML TUBE PO PRN ×2 (01:02)
[2021-06-29] MEDS ORDERED: *HR* Dextrose 50 % in Water (Syg) 50 ML SYRINGE IVP PRN (01:02)
[2021-06-29] MEDS ORDERED: D5% in Water 1,000 ML IVC PRN (01:02)
[2021-06-29] MEDS: Insulin LISPRO 300 UNITS/3 ML VIAL SUBQ SCH ×5 (02:27→21:48)
[2021-06-29 05:17] LABS: INR 1.6; Prothrombin Time 17.9 Seconds (9.4-12.1)
[2021-06-29 05:47] LABS: BUN/Creatinine Ratio 4 (6-26); Blood Urea Nitrogen 47 mg/dL (6-20); C-Reactive Protein > 300 mg/L (Less than 10); Calcium 8.7 mg/dL (8.6-10.3); Carbon Dioxide 22 mEq/L (23-29); Chloride 96 mEq/L (98-107); Ferritin > 1500 ng/mL (20-250); Glucose 142 mg/dL (70-105); Lactate Dehydrogenase 187 Units/L (140-271); Osmolality,Calculated 291 (280-300); Potassium 4.8 mEq/L (3.5-5.1); Sodium 133 mEq/L (136-145); eGFR For African Americans 6 (> 60); eGFR For Non-African Americans 5 (> 60)
[2021-06-29] MEDS: Apixaban 5 MG TABLET PO SCH ×2 (08:45→21:31)
[2021-06-29] MEDS: Metoprolol 100 MG TABLET PO SCH ×2 (08:45→21:31)
[2021-06-29] MEDS: Aspirin 81 MG TAB.CHEW PO SCH (08:45)
[2021-06-29] MEDS: amLODIPine 5 MG TABLET PO SCH (08:46)
[2021-06-29] MEDS: Dexamethasone Sodium Phos/PF 10 MG/ML VIAL IVP SCH (08:46)
[2021-06-29] MEDS ORDERED: *HR* Heparin 10,000 UNIT/10 ML VIAL IV PRN ×2 (08:50)
[2021-06-29] MEDS ORDERED: 0.9 % Sodium Chloride 250 ML IVC PRN (08:50)
[2021-06-29] MEDS ORDERED: 0.9 % Sodium Chloride 1,000 ML PRIME SCH (09:00)
[2021-06-29] MEDS ORDERED: Vancomycin 500 MG in 0.9 % Sodium Chloride Mini Bag 100 ML IVPB ONE (16:00)
[2021-06-29] MEDS ORDERED: INSULIN DEGLUDEC 100 UNIT SQ SCH (21:00)
[2021-06-29] MEDS: Cefepime HCl 1,000 MG in Water for inj. (sterile) 10 ML IVP SCH (21:31)
[2021-06-29] MEDS: Fluconazole 200 MG/100 ML 100 MG/50 ML BAG IVPB SCH (23:50)
[2021-06-30 08:03] LABS: Hematocrit 24.8 % (37.5-50.1); Hemoglobin 8.2 g/dL (12.9-16.9); Immature Granulocytes % 0.5 % (0-4); Lymphocytes # 0.4 K/mcL (0.6-4.6); Lymphocytes % 8.2 %; Mean Corpuscular HGB Conc 33.1 g/dL (31.6-35.5); Mean Corpuscular Hemoglobin 30.8 pg (28.0-33.3); Mean Corpuscular Volume 93.2 fL (83.0-100.0); Mean Platelet Volume 10.6 fL (9.4-12.4); Monocytes # 0.4 K/mcL (0.0-1.3); Monocytes % 9.6 %; Neutrophils # 3.5 K/mcL (1.6-8.9); Platelet Count 177 K/mcL (140-400); Red Blood Count 2.66 M/mcL (4.19-5.50); Red Cell Distribution Width 15.5 % (11.5-14.5); Segmented Neutrophils % 81.7 %; White Blood Count 4.3 K/mcL (4.3-11.1)
[2021-06-30 08:19] LABS: Calcium 8.7 mg/dL (8.6-10.3); Potassium 4.4 mEq/L (3.5-5.1)
[2021-06-30] MEDS: SODIUM ZIRCONIUM CYCLOSILICATE 5 GM POWD.PACK PO SCH (09:18)
[2021-06-30] MEDS: allopurinoL 300 MG TABLET PO SCH (09:19)
[2021-06-30] MEDS: Aspirin 81 MG TAB.CHEW PO SCH (09:19)
[2021-06-30] MEDS: Apixaban 5 MG TABLET PO SCH ×2 (09:20→20:28)
[2021-06-30] MEDS: amLODIPine 5 MG TABLET PO SCH (09:22)
[2021-06-30] MEDS: Metoprolol 100 MG TABLET PO SCH ×2 (09:22→20:28)
[2021-06-30] MEDS: Gentamicin Oint 15 GM TUBE TP SCH (09:23)
[2021-06-30] MEDS: (Sucroferric Oxyhydroxide [Velphoro] 500 MG Tab.Chew) PO SCH ×3 (09:24→17:37)
[2021-06-30] MEDS: Dexamethasone Sodium Phos/PF 10 MG/ML VIAL IVP SCH (09:30)
[2021-06-30] MEDS: Insulin LISPRO 300 UNITS/3 ML VIAL SUBQ SCH ×4 (09:37→20:28)
[2021-06-30] MEDS ORDERED: *HR* Heparin 10,000 UNIT/10 ML VIAL IV PRN ×2 (10:14)
[2021-06-30] MEDS ORDERED: 0.9 % Sodium Chloride 250 ML IVC PRN (10:14)
[2021-06-30] MEDS ORDERED: Vancomycin 500 MG in 0.9 % Sodium Chloride Mini Bag 100 ML IVPB ONE (16:00)
[2021-06-30] MEDS: Fluconazole 100 MG TABLET PO SCH (17:35)
[2021-06-30] MEDS: Cefepime HCl 2,000 MG in Water for inj. (sterile) 20 ML IVP SCH (20:28)
[2021-07-01] MEDS: *HR* HYDROcodone/Acet 7.5/325 mg TABLET PO PRN (00:50)
[2021-07-01] MEDS: Aspirin 81 MG TAB.CHEW PO SCH (09:39)
[2021-07-01] MEDS: amLODIPine 5 MG TABLET PO SCH (09:39)
[2021-07-01] MEDS: Metoprolol 100 MG TABLET PO SCH ×2 (09:39→22:26)
[2021-07-01] MEDS: (Sucroferric Oxyhydroxide [Velphoro] 500 MG Tab.Chew) PO SCH ×3 (09:40→16:34)
[2021-07-01] MEDS: allopurinoL 300 MG TABLET PO SCH (09:40)
[2021-07-01] MEDS: Apixaban 5 MG TABLET PO SCH ×2 (09:40→22:27)
[2021-07-01] MEDS: Insulin LISPRO 300 UNITS/3 ML VIAL SUBQ SCH ×4 (09:41→22:27)
[2021-07-01] MEDS: Dexamethasone Sodium Phos/PF 10 MG/ML VIAL IVP SCH (09:41)
[2021-07-01] MEDS: SODIUM ZIRCONIUM CYCLOSILICATE 5 GM POWD.PACK PO SCH (09:42)
[2021-07-01] MEDS: Gentamicin Oint 15 GM TUBE TP SCH (10:52)
[2021-07-01 16:23] LABS: Hematocrit 24.6 % (37.5-50.1); Hemoglobin 8.1 g/dL (12.9-16.9); Mean Corpuscular HGB Conc 32.9 g/dL (31.6-35.5); Mean Corpuscular Hemoglobin 30.7 pg (28.0-33.3); Mean Corpuscular Volume 93.2 fL (83.0-100.0); Mean Platelet Volume 10.6 fL (9.4-12.4); Platelet Count 206 K/mcL (140-400); Red Blood Count 2.64 M/mcL (4.19-5.50); Red Cell Distribution Width 15.3 % (11.5-14.5); White Blood Count 5.3 K/mcL (4.3-11.1)
[2021-07-01 16:45] LABS: Calcium 8.9 mg/dL (8.6-10.3); Potassium 4.6 mEq/L (3.5-5.1)
[2021-07-01] MEDS ORDERED: Insulin DETEMIR 100 UNIT/ML X5UNITS SUBQ SCH (21:00)
[2021-07-02 07:26] LABS: Hematocrit 23.9 % (37.5-50.1); Mean Corpuscular HGB Conc 33.5 g/dL (31.6-35.5); Mean Corpuscular Hemoglobin 31.1 pg (28.0-33.3); Mean Platelet Volume 10.8 fL (9.4-12.4); Platelet Count 219 K/mcL (140-400); Red Blood Count 2.57 M/mcL (4.19-5.50); Red Cell Distribution Width 14.9 % (11.5-14.5); White Blood Count 7.3 K/mcL (4.3-11.1)
[2021-07-02 07:37] LABS: Calcium 8.9 mg/dL (8.6-10.3); Potassium 4.6 mEq/L (3.5-5.1)
[2021-07-02] MEDS ORDERED: Insulin DETEMIR 100 UNIT/ML X5UNITS SUBQ SCH (09:00)
[2021-07-02] MEDS: SODIUM ZIRCONIUM CYCLOSILICATE 5 GM POWD.PACK PO SCH (09:01)
[2021-07-02] MEDS: Apixaban 5 MG TABLET PO SCH ×2 (09:02→20:02)
[2021-07-02] MEDS: Aspirin 81 MG TAB.CHEW PO SCH (09:02)
[2021-07-02] MEDS: allopurinoL 300 MG TABLET PO SCH (09:04)
[2021-07-02] MEDS: Gentamicin Oint 15 GM TUBE TP SCH (09:04)
[2021-07-02] MEDS: Insulin LISPRO 300 UNITS/3 ML VIAL SUBQ SCH ×4 (09:09→20:03)
[2021-07-02] MEDS: (Sucroferric Oxyhydroxide [Velphoro] 500 MG Tab.Chew) PO SCH ×3 (09:09→16:55)
[2021-07-02] MEDS: amLODIPine 5 MG TABLET PO SCH (09:10)
[2021-07-02] MEDS: Metoprolol 100 MG TABLET PO SCH ×2 (09:10→20:02)
[2021-07-02] MEDS ORDERED: 0.9 % Sodium Chloride 250 ML IVC PRN (10:35)
[2021-07-02] MEDS ORDERED: *HR* Heparin 10,000 UNIT/10 ML VIAL IV PRN (10:35)
[2021-07-02] MEDS: Fluconazole 100 MG TABLET PO SCH (16:55)
[2021-07-02] MEDS: Cefepime HCl 2,000 MG in Water for inj. (sterile) 20 ML IVP SCH (18:03)
[2021-07-02] MEDS: *HR* HYDROcodone/Acet 7.5/325 mg TABLET PO PRN (20:02)
[2021-07-02] MEDS: Insulin DETEMIR 100 UNIT/ML X5UNITS SUBQ SCH (20:02)
[2021-07-03] MEDS: Insulin LISPRO 300 UNITS/3 ML VIAL SUBQ SCH ×4 (07:54→22:29)
[2021-07-03] MEDS: SODIUM ZIRCONIUM CYCLOSILICATE 5 GM POWD.PACK PO SCH (08:26)
[2021-07-03] MEDS: allopurinoL 300 MG TABLET PO SCH (08:27)
[2021-07-03] MEDS: Metoprolol 100 MG TABLET PO SCH ×2 (08:28→20:00)
[2021-07-03] MEDS: Apixaban 5 MG TABLET PO SCH ×2 (08:28→20:00)
[2021-07-03] MEDS: Aspirin 81 MG TAB.CHEW PO SCH (08:28)
[2021-07-03] MEDS: (Sucroferric Oxyhydroxide [Velphoro] 500 MG Tab.Chew) PO SCH ×3 (08:29→18:13)
[2021-07-03] MEDS: amLODIPine 5 MG TABLET PO SCH (08:29)
[2021-07-03] MEDS: Gentamicin Oint 15 GM TUBE TP SCH (08:29)
[2021-07-03] MEDS: Insulin DETEMIR 100 UNIT/ML X5UNITS SUBQ SCH ×2 (08:33→20:00)
[2021-07-03 19:00] LABS: Basophils % 0.5 %; Eosinophils # 0.2 K/mcL (0.0-0.6); Eosinophils % 2.5 %; Hematocrit 26.4 % (37.5-50.1); Hemoglobin 8.6 g/dL (12.9-16.9); Lymphocytes # 1.1 K/mcL (0.6-4.6); Lymphocytes % 12.9 %; Mean Corpuscular HGB Conc 32.6 g/dL (31.6-35.5); Mean Corpuscular Hemoglobin 30.5 pg (28.0-33.3); Mean Corpuscular Volume 93.6 fL (83.0-100.0); Mean Platelet Volume 10.4 fL (9.4-12.4); Monocytes # 0.9 K/mcL (0.0-1.3); Monocytes % 10.6 %; Neutrophils # 5.9 K/mcL (1.6-8.9); Nucleated Red Blood Cells 0.2 /100 WBC (0); Platelet Count 255 K/mcL (140-400); Red Blood Count 2.82 M/mcL (4.19-5.50); Red Cell Distribution Width 15.1 % (11.5-14.5); Segmented Neutrophils % 68.5 %; White Blood Count 8.7 K/mcL (4.3-11.1)
[2021-07-03 19:19] LABS: Calcium 8.7 mg/dL (8.6-10.3); Potassium 4.3 mEq/L (3.5-5.1)
[2021-07-04] MEDS: Insulin LISPRO 300 UNITS/3 ML VIAL SUBQ SCH ×4 (07:52→21:55)
[2021-07-04] MEDS: (Sucroferric Oxyhydroxide [Velphoro] 500 MG Tab.Chew) PO SCH ×3 (07:55→16:38)
[2021-07-04] MEDS: SODIUM ZIRCONIUM CYCLOSILICATE 5 GM POWD.PACK PO SCH (08:07)
[2021-07-04] MEDS: Metoprolol 100 MG TABLET PO SCH ×2 (08:08→21:46)
[2021-07-04] MEDS: Aspirin 81 MG TAB.CHEW PO SCH (08:09)
[2021-07-04] MEDS: Apixaban 5 MG TABLET PO SCH ×2 (08:09→21:46)
[2021-07-04] MEDS: amLODIPine 5 MG TABLET PO SCH (08:09)
[2021-07-04] MEDS: Gentamicin Oint 15 GM TUBE TP SCH (08:10)
[2021-07-04] MEDS: allopurinoL 300 MG TABLET PO SCH (08:17)
[2021-07-04] MEDS: Insulin DETEMIR 100 UNIT/ML X5UNITS SUBQ SCH ×2 (08:19→21:53)
[2021-07-05 05:49] LABS: Calcium 8.6 mg/dL (8.6-10.3); Potassium 4.7 mEq/L (3.5-5.1)
[2021-07-05] MEDS: Insulin LISPRO 300 UNITS/3 ML VIAL SUBQ SCH ×4 (08:16→22:00)
[2021-07-05] MEDS: (Sucroferric Oxyhydroxide [Velphoro] 500 MG Tab.Chew) PO SCH ×3 (08:16→17:03)
[2021-07-05] MEDS ORDERED: 0.9 % Sodium Chloride 250 ML IVC PRN (08:46)
[2021-07-05] MEDS ORDERED: *HR* Heparin 10,000 UNIT/10 ML VIAL IV PRN (08:46)
[2021-07-05] MEDS: SODIUM ZIRCONIUM CYCLOSILICATE 5 GM POWD.PACK PO SCH (09:26)
[2021-07-05] MEDS: Insulin DETEMIR 100 UNIT/ML X5UNITS SUBQ SCH ×2 (09:26→22:35)
[2021-07-05] MEDS: amLODIPine 5 MG TABLET PO SCH (09:27)
[2021-07-05] MEDS: allopurinoL 300 MG TABLET PO SCH (09:27)
[2021-07-05] MEDS: Aspirin 81 MG TAB.CHEW PO SCH (09:27)
[2021-07-05] MEDS: Apixaban 5 MG TABLET PO SCH ×2 (09:27→20:22)
[2021-07-05] MEDS: Metoprolol 100 MG TABLET PO SCH ×2 (09:27→20:22)
[2021-07-05] MEDS: Gentamicin Oint 15 GM TUBE TP SCH (09:28)
[2021-07-05 13:14] LABS: Basophils % 0.5 %; Eosinophils # 0.3 K/mcL (0.0-0.6); Eosinophils % 3.8 %; Hematocrit 24.7 % (37.5-50.1); Hemoglobin 8.3 g/dL (12.9-16.9); Immature Granulocytes % 4.5 % (0-4); Lymphocytes # 1.2 K/mcL (0.6-4.6); Mean Corpuscular HGB Conc 33.6 g/dL (31.6-35.5); Mean Corpuscular Hemoglobin 31.3 pg (28.0-33.3); Mean Corpuscular Volume 93.2 fL (83.0-100.0); Monocytes % 11.6 %; Neutrophils # 5.9 K/mcL (1.6-8.9); Platelet Count 244 K/mcL (140-400); Red Blood Count 2.65 M/mcL (4.19-5.50); Red Cell Distribution Width 15.7 % (11.5-14.5); Segmented Neutrophils % 66.6 %; White Blood Count 8.9 K/mcL (4.3-11.1)
[2021-07-05 15:04] LABS: Hepatitis B Surface Antibody < 3.10 mIU/mL
[2021-07-05 15:15] LABS: Hepatitis B Surface Antigen Nonreactive (Nonreactive)
[2021-07-05] MEDS ORDERED: Vancomycin 500 MG in 0.9 % Sodium Chloride Mini Bag 100 ML IVPB ONE (16:00)
[2021-07-05] MEDS: Fluconazole 100 MG TABLET PO SCH (17:03)
[2021-07-05] MEDS: Cefepime HCl 2,000 MG in Water for inj. (sterile) 20 ML IVP SCH (20:24)
[2021-07-05] MEDS: *HR* HYDROcodone/Acet 7.5/325 mg TABLET PO PRN (22:00)
[2021-07-05] MEDS: Acetaminophen 325 MG TABLET PO PRN (23:51)
[2021-07-06 08:14] LABS: Hematocrit 23.6 % (37.5-50.1); Hemoglobin 7.7 g/dL (12.9-16.9); Mean Corpuscular HGB Conc 32.6 g/dL (31.6-35.5); Mean Corpuscular Hemoglobin 30.8 pg (28.0-33.3); Mean Corpuscular Volume 94.4 fL (83.0-100.0); Mean Platelet Volume 10.7 fL (9.4-12.4); Platelet Count 193 K/mcL (140-400); Red Cell Distribution Width 15.7 % (11.5-14.5); White Blood Count 8.2 K/mcL (4.3-11.1)
[2021-07-06 08:41] LABS: Calcium 8.6 mg/dL (8.6-10.3); Potassium 4.7 mEq/L (3.5-5.1)
[2021-07-06] MEDS: SODIUM ZIRCONIUM CYCLOSILICATE 5 GM POWD.PACK PO SCH (09:24)
[2021-07-06] MEDS: amLODIPine 5 MG TABLET PO SCH (09:27)
[2021-07-06] MEDS: Aspirin 81 MG TAB.CHEW PO SCH (09:30)
[2021-07-06] MEDS: allopurinoL 300 MG TABLET PO SCH (09:30)
[2021-07-06] MEDS: Metoprolol 100 MG TABLET PO SCH ×2 (09:30→20:42)
[2021-07-06] MEDS: Apixaban 5 MG TABLET PO SCH ×2 (09:34→20:43)
[2021-07-06] MEDS: (Sucroferric Oxyhydroxide [Velphoro] 500 MG Tab.Chew) PO SCH ×3 (09:34→20:47)
[2021-07-06] MEDS: Gentamicin Oint 15 GM TUBE TP SCH (09:37)
[2021-07-06] MEDS: Insulin DETEMIR 100 UNIT/ML X5UNITS SUBQ SCH ×2 (09:39→20:43)
[2021-07-06] MEDS: Insulin LISPRO 300 UNITS/3 ML VIAL SUBQ SCH ×4 (09:39→20:47)
[2021-07-06] MEDS: Acetaminophen 325 MG TABLET PO PRN (16:23)
[2021-07-06 19:05] LABS: Hematocrit 22.7 % (37.5-50.1); Hemoglobin 7.2 g/dL (12.9-16.9)
[2021-07-07] MEDS ORDERED: Phenylephrine Nasal 0.5% 15 ML BOTTLE NS ONE (02:09)
[2021-07-07] MEDS ORDERED: *HR* Heparin 10,000 UNIT/10 ML VIAL IV PRN (08:08)
[2021-07-07] MEDS ORDERED: 0.9 % Sodium Chloride 250 ML IVC PRN (08:08)
[2021-07-07] MEDS: *HR* HYDROcodone/Acet 7.5/325 mg TABLET PO PRN ×2 (09:35→20:46)
[2021-07-07] MEDS: Aspirin 81 MG TAB.CHEW PO SCH (09:37)
[2021-07-07] MEDS: amLODIPine 5 MG TABLET PO SCH (09:44)
[2021-07-07 09:48] LABS: Hematocrit 21.8 % (37.5-50.1); Hemoglobin 7.1 g/dL (12.9-16.9); Mean Corpuscular HGB Conc 32.6 g/dL (31.6-35.5); Mean Corpuscular Volume 95.2 fL (83.0-100.0); Mean Platelet Volume 11.4 fL (9.4-12.4); Platelet Count 177 K/mcL (140-400); Red Blood Count 2.29 M/mcL (4.19-5.50); Red Cell Distribution Width 15.9 % (11.5-14.5)
[2021-07-07] MEDS: SODIUM ZIRCONIUM CYCLOSILICATE 5 GM POWD.PACK PO SCH (09:48)
[2021-07-07] MEDS: Gentamicin Oint 15 GM TUBE TP SCH (09:49)
[2021-07-07] MEDS: Metoprolol 100 MG TABLET PO SCH ×2 (09:49→20:17)
[2021-07-07] MEDS: allopurinoL 300 MG TABLET PO SCH (09:50)
[2021-07-07] MEDS: Insulin DETEMIR 100 UNIT/ML X5UNITS SUBQ SCH ×2 (09:54→20:20)
[2021-07-07] MEDS: Insulin LISPRO 300 UNITS/3 ML VIAL SUBQ SCH ×4 (10:04→20:52)
[2021-07-07] MEDS: (Sucroferric Oxyhydroxide [Velphoro] 500 MG Tab.Chew) PO SCH ×3 (10:04→20:50)
[2021-07-07] MEDS ORDERED: DESMOPRESSIN ACETATE IVPB ONE (10:05)
[2021-07-07] MEDS ORDERED: SODIUM CHLORIDE 0.9% IVPB ONE (10:05)
[2021-07-07 11:23] LABS: Calcium 8.7 mg/dL (8.6-10.3); Potassium 4.7 mEq/L (3.5-5.1)
[2021-07-07] MEDS ORDERED: 0.9 % Sodium Chloride 250 ML ONE (20:07)
[2021-07-07] MEDS: Cefepime HCl 2,000 MG in Water for inj. (sterile) 20 ML IVP SCH (20:19)
[2021-07-08] MEDS: Acetaminophen 325 MG TABLET PO PRN ×2 (02:53→14:38)
[2021-07-08 07:35] LABS: Hematocrit 19.7 % (37.5-50.1); Hemoglobin 6.3 g/dL (12.9-16.9); Mean Corpuscular Hemoglobin 30.4 pg (28.0-33.3); Mean Corpuscular Volume 95.2 fL (83.0-100.0); Mean Platelet Volume 11.5 fL (9.4-12.4); Platelet Count 140 K/mcL (140-400); Red Blood Count 2.07 M/mcL (4.19-5.50); Red Cell Distribution Width 15.7 % (11.5-14.5); White Blood Count 8.1 K/mcL (4.3-11.1)
[2021-07-08 07:56] LABS: Calcium 8.5 mg/dL (8.6-10.3); Potassium 4.7 mEq/L (3.5-5.1)
[2021-07-08 07:57] LABS: % Iron Saturation 9 % (20-55); Iron 20 mcg/dL (65-175); Transferrin 155 mg/dL (203-362)
[2021-07-08] MEDS: Insulin LISPRO 300 UNITS/3 ML VIAL SUBQ SCH ×4 (08:04→21:20)
[2021-07-08] MEDS: amLODIPine 5 MG TABLET PO SCH (08:05)
[2021-07-08] MEDS: Aspirin 81 MG TAB.CHEW PO SCH (08:05)
[2021-07-08] MEDS: Metoprolol 100 MG TABLET PO SCH ×2 (08:06→21:18)
[2021-07-08] MEDS: allopurinoL 300 MG TABLET PO SCH (08:06)
[2021-07-08] MEDS: SODIUM ZIRCONIUM CYCLOSILICATE 5 GM POWD.PACK PO SCH (08:06)
[2021-07-08] MEDS: Gentamicin Oint 15 GM TUBE TP SCH (08:07)
[2021-07-08] MEDS: (Sucroferric Oxyhydroxide [Velphoro] 500 MG Tab.Chew) PO SCH ×3 (08:08→16:32)
[2021-07-08] MEDS: Insulin DETEMIR 100 UNIT/ML X5UNITS SUBQ SCH ×2 (08:11→21:19)
[2021-07-08 08:20] LABS: Folate 4.7 ng/mL (3.0-16.0)
[2021-07-08 08:41] LABS: Hepatitis B Surface Antigen Nonreactive (Nonreactive)
[2021-07-08 09:09] LABS: Hepatitis C Virus Antibody Nonreactive (Nonreactive)
[2021-07-08 09:10] LABS: Hepatitis B Core IgM Nonreactive (Nonreactive)
[2021-07-08 09:11] LABS: Hepatitis A Antibody IgM Nonreactive (Nonreactive)
[2021-07-08] MEDS: *HR* HYDROcodone/Acet 7.5/325 mg TABLET PO PRN (21:17)
[2021-07-09 04:03] LABS: Hematocrit 21.5 % (37.5-50.1); Hemoglobin 6.8 g/dL (12.9-16.9); Mean Corpuscular HGB Conc 31.6 g/dL (31.6-35.5); Mean Corpuscular Hemoglobin 29.2 pg (28.0-33.3); Mean Corpuscular Volume 92.3 fL (83.0-100.0); Mean Platelet Volume 11.6 fL (9.4-12.4); Platelet Count 138 K/mcL (140-400); Red Blood Count 2.33 M/mcL (4.19-5.50); Red Cell Distribution Width 17.8 % (11.5-14.5); White Blood Count 8.2 K/mcL (4.3-11.1)
[2021-07-09 04:20] LABS: Calcium 8.3 mg/dL (8.6-10.3); Potassium 4.7 mEq/L (3.5-5.1)
[2021-07-09] MEDS ORDERED: 0.9 % Sodium Chloride 250 ML IVC PRN (08:06)
[2021-07-09] MEDS ORDERED: *HR* Heparin 10,000 UNIT/10 ML VIAL IV PRN (08:06)
[2021-07-09] MEDS: Insulin LISPRO 300 UNITS/3 ML VIAL SUBQ SCH ×4 (08:55→21:31)
[2021-07-09] MEDS: (Sucroferric Oxyhydroxide [Velphoro] 500 MG Tab.Chew) PO SCH ×3 (10:21→18:25)
[2021-07-09] MEDS: Insulin DETEMIR 100 UNIT/ML X5UNITS SUBQ SCH ×2 (10:22→21:34)
[2021-07-09] MEDS: allopurinoL 300 MG TABLET PO SCH (14:01)
[2021-07-09] MEDS: Aspirin 81 MG TAB.CHEW PO SCH (14:01)
[2021-07-09] MEDS: amLODIPine 5 MG TABLET PO SCH (14:01)
[2021-07-09] MEDS: Metoprolol 100 MG TABLET PO SCH ×2 (14:02→21:33)
[2021-07-09] MEDS: Gentamicin Oint 15 GM TUBE TP SCH (14:02)
[2021-07-09] MEDS: SODIUM ZIRCONIUM CYCLOSILICATE 5 GM POWD.PACK PO SCH (14:03)
[2021-07-09] MEDS: Cefepime HCl 2,000 MG in Water for inj. (sterile) 20 ML IVP SCH (18:23)
[2021-07-09] MEDS: *HR* HYDROcodone/Acet 7.5/325 mg TABLET PO PRN (21:38)
[2021-07-10 05:04] LABS: Basophils % 0.4 %; Eosinophils # 0.1 K/mcL (0.0-0.6); Hematocrit 22.8 % (37.5-50.1); Hemoglobin 7.3 g/dL (12.9-16.9); Immature Granulocytes % 1.5 % (0-4); Lymphocytes # 0.6 K/mcL (0.6-4.6); Lymphocytes % 9.2 %; Mean Corpuscular Hemoglobin 29.3 pg (28.0-33.3); Mean Corpuscular Volume 91.6 fL (83.0-100.0); Mean Platelet Volume 11.3 fL (9.4-12.4); Monocytes # 1.2 K/mcL (0.0-1.3); Monocytes % 17.7 %; Neutrophils # 4.8 K/mcL (1.6-8.9); Platelet Count 141 K/mcL (140-400); Red Blood Count 2.49 M/mcL (4.19-5.50); Red Cell Distribution Width 17.4 % (11.5-14.5); Segmented Neutrophils % 70.2 %; White Blood Count 6.9 K/mcL (4.3-11.1)
[2021-07-10 05:08] LABS: Calcium 8.9 mg/dL (8.6-10.3); Potassium 4.5 mEq/L (3.5-5.1)
[2021-07-10] MEDS: allopurinoL 300 MG TABLET PO SCH (09:05)
[2021-07-10] MEDS: amLODIPine 5 MG TABLET PO SCH (09:05)
[2021-07-10] MEDS: Metoprolol 100 MG TABLET PO SCH ×2 (09:05→21:35)
[2021-07-10] MEDS: Aspirin 81 MG TAB.CHEW PO SCH (09:05)
[2021-07-10] MEDS: (Sucroferric Oxyhydroxide [Velphoro] 500 MG Tab.Chew) PO SCH ×3 (09:05→20:16)
[2021-07-10] MEDS: SODIUM ZIRCONIUM CYCLOSILICATE 5 GM POWD.PACK PO SCH (09:06)
[2021-07-10] MEDS: Gentamicin Oint 15 GM TUBE TP SCH (09:06)
[2021-07-10] MEDS: Insulin DETEMIR 100 UNIT/ML X5UNITS SUBQ SCH ×2 (09:06→21:35)
[2021-07-10] MEDS: Insulin LISPRO 300 UNITS/3 ML VIAL SUBQ SCH ×4 (09:07→21:35)
[2021-07-10] MEDS ORDERED: predniSONE 20 MG TABLET PO ONE (10:13)
[2021-07-11] MEDS: Acetaminophen 325 MG TABLET PO PRN (04:49)
[2021-07-11 06:49] LABS: Basophils % 0.2 %; Hematocrit 22.4 % (37.5-50.1); Hemoglobin 7.4 g/dL (12.9-16.9); Immature Granulocytes % 1.2 % (0-4); Lymphocytes # 0.5 K/mcL (0.6-4.6); Lymphocytes % 7.4 %; Mean Corpuscular Hemoglobin 30.2 pg (28.0-33.3); Mean Corpuscular Volume 91.4 fL (83.0-100.0); Mean Platelet Volume 11.2 fL (9.4-12.4); Monocytes # 0.9 K/mcL (0.0-1.3); Monocytes % 13.6 %; Neutrophils # 5.1 K/mcL (1.6-8.9); Platelet Count 152 K/mcL (140-400); Red Blood Count 2.45 M/mcL (4.19-5.50); Red Cell Distribution Width 16.2 % (11.5-14.5); Segmented Neutrophils % 77.6 %; White Blood Count 6.6 K/mcL (4.3-11.1)
[2021-07-11 07:03] LABS: Calcium 8.9 mg/dL (8.6-10.3); Potassium 4.7 mEq/L (3.5-5.1)
[2021-07-11] MEDS: Metoprolol 100 MG TABLET PO SCH ×2 (09:11→21:20)
[2021-07-11] MEDS: allopurinoL 300 MG TABLET PO SCH (09:11)
[2021-07-11] MEDS: amLODIPine 5 MG TABLET PO SCH (09:11)
[2021-07-11] MEDS: Aspirin 81 MG TAB.CHEW PO SCH (09:11)
[2021-07-11] MEDS: (Sucroferric Oxyhydroxide [Velphoro] 500 MG Tab.Chew) PO SCH ×3 (09:12→22:15)
[2021-07-11] MEDS: SODIUM ZIRCONIUM CYCLOSILICATE 5 GM POWD.PACK PO SCH (09:12)
[2021-07-11] MEDS: Insulin LISPRO 300 UNITS/3 ML VIAL SUBQ SCH ×4 (09:12→21:21)
[2021-07-11] MEDS: Gentamicin Oint 15 GM TUBE TP SCH (09:12)
[2021-07-11] MEDS: *HR* HYDROcodone/Acet 7.5/325 mg TABLET PO PRN (09:15)
[2021-07-11] MEDS: Insulin DETEMIR 100 UNIT/ML X5UNITS SUBQ SCH ×2 (09:15→21:21)
[2021-07-11] MEDS: predniSONE 20 MG TABLET PO SCH (12:37)
[2021-07-12] MEDS: Insulin LISPRO 300 UNITS/3 ML VIAL SUBQ SCH ×4 (07:54→21:47)
[2021-07-12] MEDS: Insulin DETEMIR 100 UNIT/ML X5UNITS SUBQ SCH ×2 (07:54→21:51)
[2021-07-12] MEDS: predniSONE 20 MG TABLET PO SCH (07:55)
[2021-07-12] MEDS: amLODIPine 5 MG TABLET PO SCH (07:55)
[2021-07-12] MEDS: SODIUM ZIRCONIUM CYCLOSILICATE 5 GM POWD.PACK PO SCH (07:56)
[2021-07-12] MEDS: allopurinoL 300 MG TABLET PO SCH (07:56)
[2021-07-12] MEDS: (Sucroferric Oxyhydroxide [Velphoro] 500 MG Tab.Chew) PO SCH ×3 (07:56→17:32)
[2021-07-12] MEDS: Metoprolol 100 MG TABLET PO SCH ×2 (07:56→21:51)
[2021-07-12] MEDS: Aspirin 81 MG TAB.CHEW PO SCH (07:56)
[2021-07-12] MEDS ORDERED: 0.9 % Sodium Chloride 250 ML IVC PRN (08:07)
[2021-07-12] MEDS ORDERED: *HR* Heparin 10,000 UNIT/10 ML VIAL IV PRN (08:07)
[2021-07-12 08:29] LABS: Basophils % 0.1 %; Hematocrit 24.2 % (37.5-50.1); Hemoglobin 7.8 g/dL (12.9-16.9); Lymphocytes # 0.5 K/mcL (0.6-4.6); Lymphocytes % 5.8 %; Mean Corpuscular HGB Conc 32.2 g/dL (31.6-35.5); Mean Corpuscular Hemoglobin 29.4 pg (28.0-33.3); Mean Corpuscular Volume 91.3 fL (83.0-100.0); Mean Platelet Volume 11.2 fL (9.4-12.4); Monocytes # 0.6 K/mcL (0.0-1.3); Monocytes % 7.4 %; Platelet Count 183 K/mcL (140-400); Red Blood Count 2.65 M/mcL (4.19-5.50); Segmented Neutrophils % 85.7 %; White Blood Count 8.2 K/mcL (4.3-11.1)
[2021-07-12 08:48] LABS: Potassium 5.2 mEq/L (3.5-5.1)
[2021-07-12] MEDS ORDERED: Vancomycin 500 MG in 0.9 % Sodium Chloride Mini Bag 100 ML IVPB ONE (17:00)
[2021-07-12] MEDS: Cefepime HCl 2,000 MG in Water for inj. (sterile) 20 ML IVP SCH (17:40)
[2021-07-13] MEDS: Gentamicin Oint 15 GM TUBE TP SCH ×2 (04:56)
[2021-07-13 05:31] LABS: Basophils % 0.1 %; Hematocrit 24.6 % (37.5-50.1); Hemoglobin 8.1 g/dL (12.9-16.9); Immature Granulocytes % 1.2 % (0-4); Lymphocytes # 0.6 K/mcL (0.6-4.6); Mean Corpuscular HGB Conc 32.9 g/dL (31.6-35.5); Mean Corpuscular Hemoglobin 29.9 pg (28.0-33.3); Mean Corpuscular Volume 90.8 fL (83.0-100.0); Mean Platelet Volume 10.8 fL (9.4-12.4); Monocytes # 0.8 K/mcL (0.0-1.3); Monocytes % 8.4 %; Neutrophils # 7.6 K/mcL (1.6-8.9); Platelet Count 193 K/mcL (140-400); Red Blood Count 2.71 M/mcL (4.19-5.50); Red Cell Distribution Width 16.3 % (11.5-14.5); Segmented Neutrophils % 83.3 %; White Blood Count 9.1 K/mcL (4.3-11.1)
[2021-07-13 05:44] LABS: Calcium 8.6 mg/dL (8.6-10.3); Potassium 4.3 mEq/L (3.5-5.1)
[2021-07-13] MEDS: allopurinoL 300 MG TABLET PO SCH (08:30)
[2021-07-13] MEDS: amLODIPine 5 MG TABLET PO SCH (08:30)
[2021-07-13] MEDS: Metoprolol 100 MG TABLET PO SCH (08:30)
[2021-07-13] MEDS: SODIUM ZIRCONIUM CYCLOSILICATE 5 GM POWD.PACK PO SCH (08:32)
[2021-07-13] MEDS: Aspirin 81 MG TAB.CHEW PO SCH (08:32)
[2021-07-13] MEDS: (Sucroferric Oxyhydroxide [Velphoro] 500 MG Tab.Chew) PO SCH ×3 (08:34→17:27)
[2021-07-13] MEDS: predniSONE 20 MG TABLET PO SCH (08:35)
[2021-07-13] MEDS: Insulin LISPRO 300 UNITS/3 ML VIAL SUBQ SCH ×3 (08:39→17:26)
[2021-07-13] MEDS: Insulin DETEMIR 100 UNIT/ML X5UNITS SUBQ SCH (08:40)
[2021-07-13 12:56] VITALS: BP 114/51; PULSE 76; TEMP 98.4; O2SAT 94
== END 2021-07-13 18:17 | DRG 137 ==
LOC: EMEROOARM 13:50 → 3ANU 20:13 → SUATTDRO 20:13 → 3ANU 21:23 → 3NENU 06-29 21:26
PROVIDERS: ADMIT Internal Medicine; ATTEND Student in an Organized Health Care Education/Training Program

== ENCOUNTER 2021-07-14 18:20 | Inpatient (IN) ==
[2021-07-14] MEDS ORDERED: Acetaminophen 325 MG TABLET PO PRN (23:34)
[2021-07-14] MEDS ORDERED: Naloxone 0.4 MG/ML INJ IVP PRN (23:34)
[2021-07-14] MEDS ORDERED: *HR* HYDROcodone/Acet 5/325 mg TABLET PO PRN (23:34)
[2021-07-14] MEDS ORDERED: *HR* Promethazine 25 MG/ML VIAL IM PRN (23:34)
[2021-07-14] MEDS ORDERED: Melatonin 3 MG TABLET PO PRN (23:34)
[2021-07-15] MEDS ORDERED: *HR* Dextrose 50 % in Water (Syg) 50 ML SYRINGE IVP PRN (00:15)
[2021-07-15] MEDS ORDERED: Dextrose Gel 15 GM/37.5 ML TUBE PO PRN ×2 (00:15)
[2021-07-15] MEDS ORDERED: D5% in Water 1,000 ML IVC PRN (00:15)
[2021-07-15] MEDS ORDERED: Perflutren Lipid Microsphere 1.3 ML in 0.9 % Sodium Chloride 8.7 ML IVP PRN ×2 (00:23→03:45)
[2021-07-15 02:01] LABS: Basophils % 0.1 %; Hematocrit 23.5 % (37.5-50.1); Hemoglobin 7.8 g/dL (12.9-16.9); Lymphocytes # 0.3 K/mcL (0.6-4.6); Mean Corpuscular HGB Conc 33.2 g/dL (31.6-35.5); Mean Corpuscular Volume 90.4 fL (83.0-100.0); Mean Platelet Volume 11.1 fL (9.4-12.4); Monocytes # 0.4 K/mcL (0.0-1.3); Monocytes % 4.9 %; Neutrophils # 6.9 K/mcL (1.6-8.9); Platelet Count 149 K/mcL (140-400); Red Cell Distribution Width 16.2 % (11.5-14.5); White Blood Count 7.7 K/mcL (4.3-11.1)
[2021-07-15 02:16] LABS: Calcium 8.6 mg/dL (8.6-10.3); Potassium 5.2 mEq/L (3.5-5.1)
[2021-07-15 02:18] LABS: Iron 53 mcg/dL (65-175)
[2021-07-15] MEDS: Ipratropium/Albuterol Neb 3 ML IH SCH ×4 (04:14→21:19)
[2021-07-15 04:18] LABS: Ferritin > 1500 ng/mL (20-250)
[2021-07-15 05:24] LABS: % Iron Saturation 28 % (20-55); Transferrin 135 mg/dL (203-362)
[2021-07-15 05:56] LABS: Estimated Average Glucose 157 mg/dl; Hemoglobin A1C 7.1 %
[2021-07-15] MEDS ORDERED: *HR* Heparin 10,000 UNIT/10 ML VIAL IV PRN (07:40)
[2021-07-15] MEDS ORDERED: 0.9 % Sodium Chloride 250 ML IVC PRN (07:40)
[2021-07-15] MEDS ORDERED: 0.9 % Sodium Chloride 1,000 ML PRIME SCH (07:45)
[2021-07-15] MEDS: Lactobacillus 1 EACH CAP.SPRINK PO SCH ×2 (08:25→20:31)
[2021-07-15] MEDS: Aspirin 81 MG TAB.CHEW PO SCH (08:25)
[2021-07-15] MEDS: Insulin LISPRO 300 UNITS/3 ML VIAL SUBQ SCH ×3 (08:26→16:06)
[2021-07-15] MEDS: Apixaban 5 MG TABLET PO SCH ×2 (08:26→20:32)
[2021-07-15] MEDS: Metoprolol 100 MG TABLET PO SCH ×2 (08:26→20:31)
[2021-07-15] MEDS: Insulin DETEMIR 100 UNIT/ML X5UNITS SUBQ SCH ×2 (08:26→20:32)
[2021-07-15] MEDS ORDERED: Apixaban 5 MG TABLET PO SCH (09:00)
[2021-07-15] MEDS ORDERED: Vancomycin 500 MG in 0.9 % Sodium Chloride Mini Bag 100 ML IVPB ONE (16:00)
[2021-07-15] MEDS ORDERED: Cefepime HCl 2,000 MG in 0.9 % Sodium Chloride Mini Bag 100 ML IVPB ONE (16:00)
[2021-07-15] MEDS ORDERED: Cefepime HCl 1,000 MG in 0.9 % Sodium Chloride Mini Bag 100 ML IVPB SCH (16:00)
[2021-07-15] MEDS ORDERED: Fluconazole 100 MG TABLET PO ONE (16:00)
[2021-07-15] MEDS ORDERED: Fluconazole 100 MG TABLET PO SCH (16:00)
[2021-07-15] MEDS ORDERED: Insulin DETEMIR 100 UNIT/ML X5UNITS SUBQ SCH (21:00)
[2021-07-16] MEDS ORDERED: [UNRECOGNIZED DRUG - OTHER] IVPB SCH (00:11)
[2021-07-16] MEDS ORDERED: VANCOMYCIN IVPB SCH (00:11)
[2021-07-16] MEDS: Ipratropium/Albuterol Neb 3 ML IH SCH ×4 (03:45→20:08)
[2021-07-16 05:14] LABS: Calcium 8.1 mg/dL (8.6-10.3); Potassium 4.1 mEq/L (3.5-5.1)
[2021-07-16 05:19] LABS: Hematocrit 22.1 % (37.5-50.1); Mean Corpuscular HGB Conc 31.7 g/dL (31.6-35.5); Mean Corpuscular Hemoglobin 29.2 pg (28.0-33.3); Mean Corpuscular Volume 92.1 fL (83.0-100.0); Mean Platelet Volume 11.8 fL (9.4-12.4); Platelet Count 138 K/mcL (140-400); Red Cell Distribution Width 16.4 % (11.5-14.5); White Blood Count 6.1 K/mcL (4.3-11.1)
[2021-07-16] MEDS ORDERED: 0.9 % Sodium Chloride 250 ML IVC PRN (07:59)
[2021-07-16] MEDS ORDERED: *HR* Heparin 10,000 UNIT/10 ML VIAL IV PRN (07:59)
[2021-07-16] MEDS: amLODIPine 5 MG TABLET PO SCH (08:31)
[2021-07-16] MEDS: Metoprolol 100 MG TABLET PO SCH (08:31)
[2021-07-16] MEDS: Apixaban 5 MG TABLET PO SCH ×2 (08:31→21:52)
[2021-07-16] MEDS: predniSONE 20 MG TABLET PO SCH (08:32)
[2021-07-16] MEDS: Aspirin 81 MG TAB.CHEW PO SCH (08:32)
[2021-07-16] MEDS: allopurinoL 300 MG TABLET PO SCH (08:32)
[2021-07-16] MEDS: Lactobacillus 1 EACH CAP.SPRINK PO SCH ×2 (08:32→21:53)
[2021-07-16] MEDS: Insulin LISPRO 300 UNITS/3 ML VIAL SUBQ SCH ×3 (08:37→16:16)
[2021-07-16] MEDS: Gentamicin Oint 15 GM TUBE TP SCH (10:41)
[2021-07-16] MEDS ORDERED: Darbepoetin 100 MCG/0.5 ML SYRINGE SQ SCH (11:15)
[2021-07-16] MEDS: Insulin DETEMIR 100 UNIT/ML X5UNITS SUBQ SCH ×2 (14:50→22:02)
[2021-07-16] MEDS ORDERED: Fluconazole 100 MG TABLET PO SCH (16:00)
[2021-07-16] MEDS ORDERED: Cefepime HCl 2,000 MG in Water for inj. (sterile) 20 ML IVP SCH (18:00)
[2021-07-16] MEDS: Metoprolol XL (24 HR) Succ 50 MG TAB.ER.24H PO SCH (21:52)
[2021-07-17] MEDS: Ipratropium/Albuterol Neb 3 ML IH SCH ×4 (03:46→20:12)
[2021-07-17] MEDS: Insulin DETEMIR 100 UNIT/ML X5UNITS SUBQ SCH ×2 (08:28→21:48)
[2021-07-17] MEDS: predniSONE 20 MG TABLET PO SCH (08:28)
[2021-07-17] MEDS: Aspirin 81 MG TAB.CHEW PO SCH (08:28)
[2021-07-17] MEDS: Insulin LISPRO 300 UNITS/3 ML VIAL SUBQ SCH ×3 (08:28→18:33)
[2021-07-17] MEDS: Apixaban 5 MG TABLET PO SCH ×2 (08:29→21:47)
[2021-07-17] MEDS: Lactobacillus 1 EACH CAP.SPRINK PO SCH ×2 (08:29→21:47)
[2021-07-17] MEDS: Metoprolol XL (24 HR) Succ 50 MG TAB.ER.24H PO SCH ×2 (08:29→21:46)
[2021-07-17] MEDS: allopurinoL 300 MG TABLET PO SCH (08:29)
[2021-07-17] MEDS: amLODIPine 5 MG TABLET PO SCH (08:29)
[2021-07-17] MEDS: SODIUM ZIRCONIUM CYCLOSILICATE 5 GM POWD.PACK PO SCH (08:30)
[2021-07-17] MEDS: Gentamicin Oint 15 GM TUBE TP SCH (08:53)
[2021-07-17 09:06] LABS: Basophils % 0.2 %; Eosinophils % 0.6 %; Hematocrit 22.9 % (37.5-50.1); Hemoglobin 7.6 g/dL (12.9-16.9); Immature Granulocytes % 1.3 % (0-4); Lymphocytes # 0.5 K/mcL (0.6-4.6); Lymphocytes % 8.9 %; Mean Corpuscular HGB Conc 33.2 g/dL (31.6-35.5); Mean Corpuscular Hemoglobin 30.3 pg (28.0-33.3); Mean Corpuscular Volume 91.2 fL (83.0-100.0); Monocytes # 0.4 K/mcL (0.0-1.3); Monocytes % 7.2 %; Neutrophils # 4.4 K/mcL (1.6-8.9); Platelet Count 154 K/mcL (140-400); Red Blood Count 2.51 M/mcL (4.19-5.50); Red Cell Distribution Width 15.9 % (11.5-14.5); Segmented Neutrophils % 81.8 %; White Blood Count 5.4 K/mcL (4.3-11.1)
[2021-07-17 09:22] LABS: Calcium 8.6 mg/dL (8.6-10.3); Potassium 3.7 mEq/L (3.5-5.1)
[2021-07-18] MEDS ORDERED: *HR* Labetalol 20 MG/4 ML SYRINGE IVP ONE (00:58)
[2021-07-18 03:11] LABS: Hematocrit 21.9 % (37.5-50.1); Hemoglobin 7.2 g/dL (12.9-16.9); Immature Granulocytes % 1.8 % (0-4); Lymphocytes # 0.4 K/mcL (0.6-4.6); Lymphocytes % 7.7 %; Mean Corpuscular HGB Conc 32.9 g/dL (31.6-35.5); Mean Corpuscular Hemoglobin 29.9 pg (28.0-33.3); Mean Corpuscular Volume 90.9 fL (83.0-100.0); Mean Platelet Volume 11.1 fL (9.4-12.4); Monocytes # 0.3 K/mcL (0.0-1.3); Monocytes % 6.3 %; Neutrophils # 4.2 K/mcL (1.6-8.9); Platelet Count 149 K/mcL (140-400); Red Blood Count 2.41 M/mcL (4.19-5.50); Red Cell Distribution Width 15.5 % (11.5-14.5); Segmented Neutrophils % 84.2 %
[2021-07-18 03:31] LABS: Calcium 8.3 mg/dL (8.6-10.3); Potassium 4.2 mEq/L (3.5-5.1)
[2021-07-18] MEDS: Ipratropium/Albuterol Neb 3 ML IH SCH ×4 (04:10→22:54)
[2021-07-18] MEDS: Insulin DETEMIR 100 UNIT/ML X5UNITS SUBQ SCH ×2 (07:32→21:09)
[2021-07-18] MEDS: predniSONE 20 MG TABLET PO SCH (07:32)
[2021-07-18] MEDS: Insulin LISPRO 300 UNITS/3 ML VIAL SUBQ SCH ×3 (07:32→16:47)
[2021-07-18] MEDS: Metoprolol XL (24 HR) Succ 50 MG TAB.ER.24H PO SCH ×2 (07:32→21:11)
[2021-07-18] MEDS: Apixaban 5 MG TABLET PO SCH ×2 (07:33→21:08)
[2021-07-18] MEDS: amLODIPine 5 MG TABLET PO SCH (07:33)
[2021-07-18] MEDS: Aspirin 81 MG TAB.CHEW PO SCH (07:33)
[2021-07-18] MEDS: allopurinoL 300 MG TABLET PO SCH (07:33)
[2021-07-18] MEDS: Lactobacillus 1 EACH CAP.SPRINK PO SCH ×2 (07:33→21:09)
[2021-07-18] MEDS: SODIUM ZIRCONIUM CYCLOSILICATE 5 GM POWD.PACK PO SCH (07:34)
[2021-07-18] MEDS ORDERED: Gentamicin Oint 15 GM TUBE TP SCH (21:00)
[2021-07-19] MEDS ORDERED: SOD CHLORIDE IV SCH (00:11)
[2021-07-19] MEDS ORDERED: [UNRECOGNIZED DRUG - OTHER] IV SCH (00:11)
[2021-07-19] MEDS ORDERED: VANCOMYCIN IV SCH (00:11)
[2021-07-19] MEDS: Metoprolol XL (24 HR) Succ 50 MG TAB.ER.24H PO SCH ×2 (02:21→11:48)
[2021-07-19 03:17] LABS: Basophils % 0.3 %; Eosinophils % 0.1 %; Hematocrit 22.7 % (37.5-50.1); Hemoglobin 7.6 g/dL (12.9-16.9); Immature Granulocytes % 4.4 % (0-4); Lymphocytes # 0.8 K/mcL (0.6-4.6); Lymphocytes % 10.2 %; Mean Corpuscular HGB Conc 33.5 g/dL (31.6-35.5); Mean Corpuscular Hemoglobin 30.3 pg (28.0-33.3); Mean Corpuscular Volume 90.4 fL (83.0-100.0); Mean Platelet Volume 11.4 fL (9.4-12.4); Monocytes # 0.6 K/mcL (0.0-1.3); Neutrophils # 6.1 K/mcL (1.6-8.9); Platelet Count 189 K/mcL (140-400); Red Blood Count 2.51 M/mcL (4.19-5.50); Red Cell Distribution Width 15.4 % (11.5-14.5)
[2021-07-19 03:27] LABS: White Blood Count 7.8 K/mcL (4.3-11.1)
[2021-07-19 03:31] LABS: Calcium 8.3 mg/dL (8.6-10.3); Potassium 4.4 mEq/L (3.5-5.1)
[2021-07-19] MEDS: Ipratropium/Albuterol Neb 3 ML IH SCH ×3 (03:39→16:05)
[2021-07-19] MEDS: SODIUM ZIRCONIUM CYCLOSILICATE 5 GM POWD.PACK PO SCH (08:35)
[2021-07-19] MEDS: Lactobacillus 1 EACH CAP.SPRINK PO SCH (08:36)
[2021-07-19] MEDS: Aspirin 81 MG TAB.CHEW PO SCH (08:36)
[2021-07-19] MEDS: predniSONE 20 MG TABLET PO SCH (08:36)
[2021-07-19] MEDS: Apixaban 5 MG TABLET PO SCH (08:37)
[2021-07-19] MEDS: allopurinoL 300 MG TABLET PO SCH (08:37)
[2021-07-19] MEDS: Insulin DETEMIR 100 UNIT/ML X5UNITS SUBQ SCH (08:37)
[2021-07-19] MEDS: Insulin LISPRO 300 UNITS/3 ML VIAL SUBQ SCH ×2 (08:38→11:49)
[2021-07-19 10:04] LABS: Adenovirus Not Detected (Not Detect); Coronavirus 229E Not Detected (Not Detect); Coronavirus HKU1 Not Detected (Not Detect); Coronavirus NL63 Not Detected (Not Detect); Coronavirus OC43 Not Detected (Not Detect)
[2021-07-19 10:05] LABS: Bordetella Pertussis Not Detected (Not Detect); Chlamydophila pneumoniae Not Detected (Not Detect); Human Metapneumovirus Not Detected (Not Detect); Human Rhinovirus/Enterovirus Not Detected (Not Detect); Influenza A Subtype 2009 H1 Not Detected (Not Detect); Influenza B Not Detected (Not Detect); Mycoplasma pneumoniae Not Detected (Not Detect); Parainfluenza Virus 1 Not Detected (Not Detect); Parainfluenza Virus 2 Not Detected (Not Detect); Parainfluenza Virus 3 Not Detected (Not Detect); Parainfluenza Virus 4 Not Detected (Not Detect); Respiratory Syncytial Virus Not Detected (Not Detect); SARS-CoV-2 DETECTED (Not Detect)
[2021-07-19] MEDS ORDERED: *HR* Heparin 10,000 UNIT/10 ML VIAL IV PRN ×2 (11:19)
[2021-07-19] MEDS ORDERED: 0.9 % Sodium Chloride 250 ML IVC PRN (11:19)
[2021-07-19 11:33] VITALS: PULSE 120; O2SAT 96
[2021-07-19] MEDS: amLODIPine 5 MG TABLET PO SCH (11:48)
[2021-07-19 18:21] VITALS: BP 154/119; TEMP 97.8
== END 2021-07-19 19:17 | DRG 194 ==
LOC: 2ANU → SUATTDRO 20:27
PROVIDERS: ADMIT Family Medicine; ATTEND Internal Medicine

== ENCOUNTER 2022-05-31 08:37 | Inpatient (IN) ==
[2022-05-31] MEDS ORDERED: Ondansetron 4 MG/2 ML VIAL IVP ONE (09:01)
[2022-05-31] MEDS ORDERED: *HR* Atropine Sulfate 1 MG/10 ML SYRINGE ONE (09:04)
[2022-05-31] MEDS ORDERED: *HR* Atropine Sulfate 1 MG/10 ML SYRINGE IVP ONE (09:06)
[2022-05-31 09:08] LABS: Basophils # 0.1 K/mcL (0.0-0.2); Basophils % 0.4 %; Eosinophils % 0.1 %; Hematocrit 39.4 % (37.5-50.1); Hemoglobin 12.7 g/dL (12.9-16.9); Immature Granulocytes % 0.8 % (0-4); Lymphocytes # 1.5 K/mcL (0.6-4.6); Lymphocytes % 10.4 %; Mean Corpuscular HGB Conc 32.2 g/dL (31.6-35.5); Mean Corpuscular Hemoglobin 32.2 pg (28.0-33.3); Mean Corpuscular Volume 99.7 fL (83.0-100.0); Mean Platelet Volume 11.2 fL (9.4-12.4); Monocytes # 0.3 K/mcL (0.0-1.3); Monocytes % 2.3 %; Neutrophils # 12.6 K/mcL (1.6-8.9); Platelet Count 163 K/mcL (140-400); Red Blood Count 3.95 M/mcL (4.19-5.50); Red Cell Distribution Width 15.2 % (11.5-14.5); White Blood Count 14.6 K/mcL (4.3-11.1)
[2022-05-31 09:15] LABS: INR 1.1; Prothrombin Time 12.2 Seconds (9.4-12.1)
[2022-05-31 09:17] LABS: Activated Partial Thrombo Time 30.6 Seconds (26.0-36.0)
[2022-05-31] MEDS ORDERED: Albuterol 2.5 MG/3 ML NEBULIZER IH ONE (09:20)
[2022-05-31] MEDS ORDERED: Insulin Human Regular 10 UNIT in 0.9 % Sodium Chloride 10 ML IV ONE ×2 (09:30→10:05)
[2022-05-31] MEDS ORDERED: *HR* Dextrose 50 % in Water (Syg) 50 ML SYRINGE IVP ONE (09:30)
[2022-05-31 09:31] LABS: Calcium 10.2 mg/dL (8.6-10.3); Magnesium 2.7 mg/dL (1.6-2.6); Potassium 8.6 mEq/L (3.5-5.1); Troponin I 0.03 ng/mL (< 0.04)
[2022-05-31] MEDS ORDERED: Sodium Bicarbonate 50 MEQ/50 ML VIAL IVP ONE ×2 (09:37→10:42)
[2022-05-31] MEDS ORDERED: Acetaminophen 325 MG TABLET PO PRN (10:01)
[2022-05-31] MEDS ORDERED: Naloxone 0.4 MG/ML INJ IVP PRN (10:01)
[2022-05-31] MEDS ORDERED: Dextrose Gel 15 GM/37.5 ML TUBE PO PRN ×2 (10:05)
[2022-05-31] MEDS ORDERED: *HR* Dextrose 50 % in Water (Vial) 50 ML VIAL IVP ONE (10:05)
[2022-05-31] MEDS ORDERED: D5% in Water 1,000 ML IVC PRN (10:05)
[2022-05-31] MEDS ORDERED: Ipratropium/Albuterol Neb 3 ML IH ONE (10:05)
[2022-05-31] MEDS ORDERED: *HR* Dextrose 50 % in Water (Syg) 50 ML SYRINGE IVP PRN (10:05)
[2022-05-31] MEDS ORDERED: 0.9 % Sodium Chloride 250 ML IVC PRN (10:27)
[2022-05-31] MEDS ORDERED: *HR* Heparin 10,000 UNIT/10 ML VIAL IV PRN (10:27)
[2022-05-31] MEDS ORDERED: 0.9 % Sodium Chloride 2,000 ML PRIME SCH (10:30)
[2022-05-31] MEDS: Insulin LISPRO 300 UNITS/3 ML VIAL SUBQ SCH ×2 (19:59)
[2022-05-31 20:02] LABS: Calcium 10.3 mg/dL (8.6-10.3); Magnesium 2.2 mg/dL (1.6-2.6); Potassium 4.9 mEq/L (3.5-5.1); Troponin I 0.06 ng/mL (< 0.04)
[2022-05-31] MEDS ORDERED: *HR* Heparin 5,000 UNIT/ML VIAL SQ SCH (22:00)
[2022-05-31] MEDS ORDERED: Melatonin 3 MG TABLET PO PRN (22:58)
[2022-05-31] MEDS ORDERED: *HR* HYDROcodone/Acet 7.5/325 mg TABLET PO PRN (22:58)
[2022-06-01 02:56] LABS: Basophils % 0.3 %; Eosinophils # 0.1 K/mcL (0.0-0.6); Eosinophils % 1.4 %; Hematocrit 29.2 % (37.5-50.1); Immature Granulocytes % 0.8 % (0-4); Lymphocytes # 1.1 K/mcL (0.6-4.6); Lymphocytes % 11.2 %; Mean Corpuscular HGB Conc 33.2 g/dL (31.6-35.5); Mean Corpuscular Hemoglobin 32.9 pg (28.0-33.3); Monocytes # 0.9 K/mcL (0.0-1.3); Monocytes % 9.9 %; Neutrophils # 7.2 K/mcL (1.6-8.9); Platelet Count 109 K/mcL (140-400); Red Blood Count 2.95 M/mcL (4.19-5.50); Segmented Neutrophils % 76.4 %; White Blood Count 9.4 K/mcL (4.3-11.1)
[2022-06-01 02:57] LABS: Hemoglobin 9.7 g/dL (12.9-16.9)
[2022-06-01 03:30] LABS: Albumin 3.3 g/dL (3.5-5.7); Albumin/Globulin Ratio 1.3 (1.1-2.2); Bilirubin,Direct 0.1 mg/dL (0.0-0.2); Bilirubin,Indirect 0.4 mg/dL (0.0-1.0); Bilirubin,Total 0.5 mg/dL (0.3-1.0); Globulin 2.6 g/dL (2.4-3.5); Magnesium 2.2 mg/dL (1.6-2.6); Phosphorous 6.4 mg/dL (2.7-4.5); Total Protein 5.9 g/dL (6.4-8.9); Troponin I 0.06 ng/mL (< 0.04)
[2022-06-01] MEDS: Metoprolol 100 MG TABLET PO SCH ×2 (08:53→21:46)
[2022-06-01] MEDS: Aspirin 81 MG TAB.CHEW PO SCH (08:53)
[2022-06-01] MEDS: Apixaban 5 MG TABLET PO SCH ×2 (08:53→21:46)
[2022-06-01] MEDS: Insulin LISPRO 300 UNITS/3 ML VIAL SUBQ SCH ×4 (08:55→21:46)
[2022-06-01 09:13] LABS: Calcium 9.2 mg/dL (8.6-10.3); Potassium 5.7 mEq/L (3.5-5.1)
[2022-06-01 09:30] LABS: Hepatitis B Surface Antibody 13.14 mIU/mL
[2022-06-01 09:41] LABS: Hepatitis B Surface Antigen Nonreactive (Nonreactive)
[2022-06-01] MEDS ORDERED: Darbepoetin 100 MCG/0.5 ML SYRINGE SQ SCH (14:00)
[2022-06-01] MEDS: SODIUM ZIRCONIUM CYCLOSILICATE 5 GM POWD.PACK PO SCH (15:16)
[2022-06-02 03:44] VITALS: O2SAT 97
[2022-06-02 05:06] LABS: Basophils % 0.4 %; Eosinophils # 0.3 K/mcL (0.0-0.6); Eosinophils % 3.2 %; Hematocrit 27.9 % (37.5-50.1); Hemoglobin 9.4 g/dL (12.9-16.9); Immature Granulocytes % 0.6 % (0-4); Lymphocytes # 1.5 K/mcL (0.6-4.6); Mean Corpuscular HGB Conc 33.7 g/dL (31.6-35.5); Mean Corpuscular Hemoglobin 32.8 pg (28.0-33.3); Mean Corpuscular Volume 97.2 fL (83.0-100.0); Monocytes # 1.1 K/mcL (0.0-1.3); Monocytes % 12.4 %; Neutrophils # 5.5 K/mcL (1.6-8.9); Platelet Count 119 K/mcL (140-400); Red Blood Count 2.87 M/mcL (4.19-5.50); Red Cell Distribution Width 14.9 % (11.5-14.5); Segmented Neutrophils % 65.4 %; White Blood Count 8.4 K/mcL (4.3-11.1)
[2022-06-02 05:15] LABS: Albumin 3.3 g/dL (3.5-5.7); Albumin/Globulin Ratio 1.2 (1.1-2.2); Bilirubin,Total 0.6 mg/dL (0.3-1.0); Calcium 9.1 mg/dL (8.6-10.3); Globulin 2.7 g/dL (2.4-3.5); Magnesium 2.2 mg/dL (1.6-2.6); Phosphorous 7.7 mg/dL (2.7-4.5); Potassium 5.5 mEq/L (3.5-5.1)
[2022-06-02 07:54] VITALS: PULSE 69
[2022-06-02] MEDS ORDERED: Ethyl Chloride Spray Bottle (104 SPRAY/BOTTLE) TP PRN (08:57)
[2022-06-02] MEDS ORDERED: *HR* Heparin 10,000 UNIT/10 ML VIAL IV PRN ×2 (08:57)
[2022-06-02] MEDS ORDERED: 0.9 % Sodium Chloride 250 ML IVC PRN (08:57)
[2022-06-02] MEDS ORDERED: 0.9 % Sodium Chloride 2,000 ML PRIME SCH (09:00)
[2022-06-02] MEDS: Insulin LISPRO 300 UNITS/3 ML VIAL SUBQ SCH ×2 (10:19→11:12)
[2022-06-02] MEDS: Aspirin 81 MG TAB.CHEW PO SCH (13:48)
[2022-06-02] MEDS: Metoprolol 100 MG TABLET PO SCH (13:49)
[2022-06-02] MEDS: Apixaban 5 MG TABLET PO SCH (13:49)
[2022-06-02] MEDS: SODIUM ZIRCONIUM CYCLOSILICATE 5 GM POWD.PACK PO SCH (13:49)
[2022-06-02 14:10] VITALS: BP 171/96; TEMP 97.7
== END 2022-06-02 16:20 | disposition home or self-care (01) | DRG 640 ==
LOC: EMEROOARM 08:37 → ICNU 08:37 → OBSVTOIN 16:15 → ICNU 18:52 → 3BNU 06-01 13:34
PROVIDERS: ADMIT Pediatrics; ATTEND Pediatrics